=== PATIENT | female | born 1965 ===

== ENCOUNTER 2024-12-21 08:34 | Inpatient (IN) | payer MEDICAID, OTHER ==
[2024-12-21] VITALS (17 sets, daily range): BP systolic 93–142; BP diastolic 36–62; PULSE 51–80; RESP 16–24; TEMP 87.2–88.2; O2SAT 89–100
[~2024-12-21] VITALS: Ht 162.6 cm; Wt 135.0 kg
[2024-12-21] MEDS ORDERED: ISOPROTERENOL HCL IV PRN (08:45)
[2024-12-21] MEDS ORDERED: SODIUM CHLORIDE 0.9% IV PRN (08:45)
[2024-12-21] MEDS: DOPamine 400MG/D5W[STANDARD] 250 ML IV PRN (09:04)
[2024-12-21 09:28] LABS: HEMATOCRIT 33.2 % (36-46); HEMOGLOBIN 10.5 g/dL (12.0-16.0); MEAN CORPUSCULAR HEMOGLOBIN 33.6 pg (26.0-34.0); MEAN CORPUSCULAR HGB CONC 31.5 G/dL (31.0-37.0); MEAN CORPUSCULAR VOLUME 107 fL (80-100); PLATELET COUNT (AUTO) 179 K/uL (150-450); RED BLOOD CELL COUNT(AUTO) 3.11 MIL/uL (4.00-5.20); RED CELL DISTRIBUTION WIDTH 15.4 % (11.5-14.5); WHITE BLOOD COUNT (AUTO) 6.1 K/uL (4.5-11.0)
[2024-12-21 09:36] LABS: PROTHROMBIN TIME 11.2 SEC (9.4-11.6)
[2024-12-21 09:38] LABS: B-TYPE NATRIURETIC PEPTIDE 1760 pg/mL (0-100)
[2024-12-21 09:41] LABS: ANION GAP 17 mmol/L (8-16); BAND NEUTROPHILS % (MANUAL) 0 % (0-5); CALCIUM, TOTAL 7.5 mg/dL (8.8-10.5); CARBON DIOXIDE 13 mmol/L (22-29); CHLORIDE 96 mmol/L (98-107); CREATINE KINASE, TOTAL ONLY 799 U/L (26-192); CREATININE 14.88 mg/dL (0.60-1.30); GLOMERULAR FILTR. RATE CALC 3 mL/min (>60); GLUCOSE,RANDOM 240 mg/dL (70-110); SODIUM SERUM 126 mmol/L (136-145); TROPONIN I-HIGH SENSITIVITY 29 ng/L (<51)
[2024-12-21 09:43] LABS: LYMPHOCYTES % (MANUAL) 13 % (22-44); MONOCYTES % (MANUAL) 8 % (2-9); SEGMENTED NEUTROPHILS % 79 % (40-70); TOTAL CELLS COUNTED 100
[2024-12-21 09:44] LABS: RBC MORPHOLOGY COMMENT ABNORMAL RBC MORPH
[2024-12-21 09:50] LABS: POTASSIUM 7.5 mmol/L (3.5-5.1); UREA NITROGEN, BLOOD 229 mg/dL (7-18)
[2024-12-21] MEDS ORDERED: SODIUM BICARBONATE [ADULT] 8.4% 50 MEQ/50 ML SYRINGE IVP ONE (09:51)
[2024-12-21] MEDS ORDERED: CALCIUM CHLORIDE 100 MG/ML 10 ML SYRINGE IVP ONE (09:52)
[2024-12-21] MEDS ORDERED: DEXTROSE 50%-WATER 25 GM/50 ML SYRINGE IVP ONE (09:52)
[2024-12-21] MEDS ORDERED: INSULIN REGULAR, HUMAN 100 UNITS/ML ONE (09:52)
[2024-12-21] MEDS: SODIUM CHLORIDE 0.9% 1,000 ML IV ONE ×2 (09:54→10:35)
[2024-12-21] MEDS ORDERED: CALCIUM GLUCONATE 0.465 MEQ/ML 10 ML VIAL ONE (09:54)
[2024-12-21] MEDS: SODIUM BICARBONATE [ADULT] 8.4% 50 MEQ/50 ML SYRINGE IVP ONE ×2 (10:05→13:03)
[2024-12-21] MEDS: DEXTROSE 50%-WATER 25 GM/50 ML SYRINGE IVP ONE ×2 (10:05→13:03)
[2024-12-21] MEDS: CALCIUM GLUCONATE 0.465 MEQ/ML 10 ML VIAL IVP ONE ×2 (10:05→13:03)
[2024-12-21] MEDS ORDERED: KETAMINE HCL 50 MG/ML 10 ML VIAL ONE (10:11)
[2024-12-21] MEDS: INSULIN REGULAR, HUMAN 100 UNITS/ML IVP ONE ×2 (10:13→13:04)
[2024-12-21] MEDS ORDERED: KETAMINE HCL 500 MG in DEXTROSE 5%-WATER 490 ML IV PRN (10:15)
[2024-12-21] MEDS: FUROSEMIDE 40 MG/4 ML VIAL IVP ONE (10:19)
[2024-12-21] MEDS: FentaNYL CIT 1000MCG/0.9% NACL 100 ML IV PRN (10:19)
[2024-12-21 10:23] LABS: APPEARANCE,URINE TURBID (CLEAR); GLUCOSE, URINE (UA) TRACE mg/dL (NEGATIVE); LEUKOCYTE ESTERASE ,URINE LARGE (NEGATIVE); NITRATE,URINE POSITIVE (NEGATIVE); OCCULT BLOOD,URINE MODERATE (NEGATIVE); PH,URINE 6.5 (5.0-8.0); PROTEIN,URINE 100-200,SEE CONFIRM mg/dL (NEGATIVE); SPECIFIC GRAVITIY, URINE 1.019 (1.003-1.030)
[2024-12-21 10:26] LABS: BILIRUBIN,URINE LARGE (NEGATIVE)
[2024-12-21 10:27] LABS: COLOR,URINE RED (YELLOW)
[2024-12-21 10:29] LABS: RBC,URINE 26-50 /HPF (0-2); SULFOSALICYLIC ACID,URINE 3+ (Negative)
[2024-12-21 10:30] LABS: BACTERIA,URINE Many /HPF (None Seen); SQUAMOUS EPITHELIAL CELL,UR Few /LPF (None Seen); WBC,URINE >100 /HPF (0-5)
[2024-12-21] MEDS: KETAMINE HCL 500 MG in DEXTROSE 5%-WATER 490 ML IV PRN (10:52)
[2024-12-21] MEDS: CefTRIAXone 1 GM/DEXTROSE 50 ML IV ONE (11:26)
[2024-12-21 12:00] LABS: GLUCOMETER DEV NAME(LOC) ER.7; GLUCOSE,POINT OF CARE 260 MG/DL (70-110)
[2024-12-21] MEDS ORDERED: ROCURONIUM BROMIDE 10 MG/ML 5 ML VIAL ONE (12:00)
[2024-12-21] MEDS ORDERED: VANCOMYCIN 1GM/WATER(PEG/NADA) 200 ML IV PRN (12:00)
[2024-12-21] MEDS ORDERED: ETOMIDATE 2 MG/ML 10 ML VIAL ONE (12:00)
[2024-12-21 12:13] LABS: ABG BASE EXCESS -22.1 mmol/L (-2.0-3.0); ABG CARBOXYHEMOGLOBIN 0.3 % (0.5-1.5); ABG HCO3 8.5 mmol/L (21.0-28.0); ABG METHEMOGLOBIN 0.8 % (0.0-1.5); ABG OXYGEN CONTENT 15.7 mL/dL (15.0-23.0); ABG OXYGEN SATURATION 97.4 % (94.0-98.0); ABG OXYHEMOGLOBIN 96.3 % (94.0-98.0); ABG PCO2 46 mmHg (32.0-45.0); ABG TOTAL HEMOGLOBIN 11.4 G/dL (12.0-16.0); PO2, ARTERIAL BG 98.7 mmHg (83.0-108.0); SOURCE, BLOOD GAS ARTERIAL; TEMPERATURE, FAHRENHEIT, BG 86.4 FAHREN (96.0-98.6)
[2024-12-21 12:15] LABS: ABG PH 6.955 (7.350-7.450); ALLEN TEST, BLOOD GAS POS; O2 DEVICE,BLOOD GAS VENTILATOR (ROOM AIR); SITE, BLOOD GAS LFT RADIAL
[2024-12-21 12:16] LABS: PEEP,BG 5 cm H2O; VT, ABG 300 ml
[2024-12-21] MEDS: NOREPINEPHRINE 8 MG/0.9 % NACL 250 ML IV PRN (13:21)
[2024-12-21] MEDS: PIPERACILLIN/TAZO 3.375 GM/D5W 50 ML IV ONE (13:32)
[2024-12-21] MEDS: SODIUM CHLORIDE 0.9% IV ONE (13:32)
[2024-12-21] MEDS: SODIUM BICARBONATE IV ONE (13:32)
[2024-12-21] MEDS: VANCOMYCIN 1.75GM/WATER(PEG) 350 ML IV ONE (13:56)
[2024-12-21] MEDS ORDERED: POTASSIUM CHLORIDE 10 MEQ in NXSTAGE RFP-402 K0/CA3 5,000 ML IRRIG PRN (14:30)
[2024-12-21] MEDS: HEPARIN SODIUM,PORCINE 5,000 UNITS/ML VIAL SQ SCH (15:11)
[2024-12-21] MEDS ORDERED: SODIUM CHLORIDE 0.9% 500 ML IV ONE (16:32)
[2024-12-21 16:48] LABS: ABG CARBOXYHEMOGLOBIN 0.1 % (0.5-1.5); ABG HCO3 11.6 mmol/L (21.0-28.0); ABG METHEMOGLOBIN 0.7 % (0.0-1.5); ABG OXYGEN CONTENT 15.1 mL/dL (15.0-23.0); ABG OXYGEN SATURATION 92.8 % (94.0-98.0); ABG OXYHEMOGLOBIN 92.1 % (94.0-98.0); ABG TOTAL HEMOGLOBIN 11.6 G/dL (12.0-16.0); PO2, ARTERIAL BG 63.8 mmHg (83.0-108.0); SOURCE, BLOOD GAS ARTERIAL; TEMPERATURE, FAHRENHEIT, BG 87.3 FAHREN (96.0-98.6)
[2024-12-21 16:49] LABS: ABG PH 6.951 (7.350-7.450)
[2024-12-21 16:50] LABS: ABG PCO2 71 mmHg (32.0-45.0); O2 DEVICE,BLOOD GAS VENTILATOR (ROOM AIR); PEEP,BG 5 cm H2O; SITE, BLOOD GAS ALINE; VT, ABG 300 ml
[2024-12-21] MEDS: CALCIUM GLUCONATE 1,000 MG in DEXTROSE 5%-WATER 50 ML IV SCH (17:05)
[2024-12-21] MEDS ORDERED: PIPERACILLIN SODIUM/TAZOBACTAM 2.25 GM in DEXTROSE 5%-WATER 50 ML IV SCH (18:00)
[2024-12-21] MEDS: PIPERACILLIN/TAZO 3.375 GM/D5W 50 ML IV SCH (18:24)
[2024-12-21 19:04] LABS: ABG BASE EXCESS -13.6 mmol/L (-2.0-3.0); ABG CARBOXYHEMOGLOBIN 0.3 % (0.5-1.5); ABG HCO3 14.1 mmol/L (21.0-28.0); ABG METHEMOGLOBIN 0.8 % (0.0-1.5); ABG OXYGEN CONTENT 17.6 mL/dL (15.0-23.0); ABG OXYGEN SATURATION 99.7 % (94.0-98.0); ABG OXYHEMOGLOBIN 98.6 % (94.0-98.0); ABG PCO2 39 mmHg (32.0-45.0); ABG TOTAL HEMOGLOBIN 12.1 G/dL (12.0-16.0); SOURCE, BLOOD GAS ARTERIAL; TEMPERATURE, FAHRENHEIT, BG 87.7 FAHREN (96.0-98.6)
[2024-12-21 19:23] LABS: CALCIUM, TOTAL 7.5 mg/dL (8.8-10.5); CREATININE 11.77 mg/dL (0.60-1.30); MAGNESIUM 2.8 mg/dL (1.80-2.40); POTASSIUM 5.4 mmol/L (3.5-5.1)
[2024-12-21 19:25] LABS: PHOSPHORUS 9.7 mg/dL (2.5-4.9)
[2024-12-21 19:44] LABS: ABG A-A DIFF O2 385.7 mmHg (10-20.0); ABG PH 7.188 (7.350-7.450); O2 DEVICE,BLOOD GAS VENT (ROOM AIR); PO2, ARTERIAL BG 301.7 mmHg (83.0-108.0); SITE, BLOOD GAS ARTERIAL LINE
[2024-12-21 19:45] LABS: PEEP,BG 10 cm H2O; VT, ABG 400 ml
[2024-12-21] MEDS: CHLORHEXIDINE GLUCONATE 2% TOWELETTE [2'S/6'S] TP SCH (21:33)
[2024-12-21] MEDS: NYSTATIN 15 GM POWDER BOTTLE TP SCH (21:33)
[2024-12-21 23:01] LABS: CALCIUM, TOTAL 7.8 mg/dL (8.8-10.5); CREATININE 9.52 mg/dL (0.60-1.30); MAGNESIUM 2.4 mg/dL (1.80-2.40); PHOSPHORUS 7.5 mg/dL (2.5-4.9); POTASSIUM 4.3 mmol/L (3.5-5.1)
[2024-12-22] VITALS (29 sets, daily range): BP systolic 114–142; BP diastolic 35–60; PULSE 47–97; RESP 18–35; TEMP 89.2–96.2; O2SAT 94–100
[2024-12-22 01:34] LABS: CALCIUM, TOTAL 8.1 mg/dL (8.8-10.5); CREATININE 8.97 mg/dL (0.60-1.30); MAGNESIUM 2.4 mg/dL (1.80-2.40); PHOSPHORUS 7.2 mg/dL (2.5-4.9); POTASSIUM 4.3 mmol/L (3.5-5.1)
[2024-12-22 01:52] LABS: ABG BASE EXCESS -10.5 mmol/L (-2.0-3.0); ABG CARBOXYHEMOGLOBIN 0.1 % (0.5-1.5); ABG HCO3 16.5 mmol/L (21.0-28.0); ABG METHEMOGLOBIN 0.1 % (0.0-1.5); ABG OXYGEN SATURATION 96.9 % (94.0-98.0); ABG OXYHEMOGLOBIN 96.7 % (94.0-98.0); ABG PCO2 34 mmHg (32.0-45.0); ABG PH 7.289 (7.350-7.450); ABG TOTAL HEMOGLOBIN 11.7 G/dL (12.0-16.0); PO2, ARTERIAL BG 67.8 mmHg (83.0-108.0); SOURCE, BLOOD GAS ARTERIAL; TEMPERATURE, FAHRENHEIT, BG 89.9 FAHREN (96.0-98.6)
[2024-12-22 01:54] LABS: ABG A-A DIFF O2 218.9 mmHg (10-20.0); O2 DEVICE,BLOOD GAS VENT (ROOM AIR); SITE, BLOOD GAS ARTERIAL LINE; VT, ABG 400 ml
[2024-12-22 01:55] LABS: PEEP,BG 8 cm H2O
[2024-12-22 06:03] LABS: ANION GAP 14 mmol/L (8-16); CALCIUM, TOTAL 8.1 mg/dL (8.8-10.5); CARBON DIOXIDE 19 mmol/L (22-29); CHLORIDE 95 mmol/L (98-107); CREATININE 9.57 mg/dL (0.60-1.30); GLOMERULAR FILTR. RATE CALC 4 mL/min (>60); GLUCOSE,RANDOM 223 mg/dL (70-110); PHOSPHORUS 7.8 mg/dL (2.5-4.9); POTASSIUM 4.7 mmol/L (3.5-5.1); SODIUM SERUM 128 mmol/L (136-145); THYROID STIMULATING HORMONE 1.64 uIU/mL (0.36-3.74)
[2024-12-22 06:21] LABS: BASOPHILS % (AUTO) 0.1 % (0.0-2.0); EOSINOPHILS % (AUTO) 0.1 % (1.0-6.0); HEMOGLOBIN 10.5 g/dL (12.0-16.0); LYMPHOCYTES # (AUTO) 0.3 K/uL (1.0-4.8); LYMPHOCYTES % (AUTO) 6.1 % (22.0-44.0); MEAN CORPUSCULAR HGB CONC 31.8 G/dL (31.0-37.0); MEAN CORPUSCULAR VOLUME 104 fL (80-100); MONOCYTES # (AUTO) 0.3 K/uL (0.1-1.0); MONOCYTES % (AUTO) 5.5 % (2.0-9.0); NEUTROPHILS # (AUTO) 4.7 K/uL (1.8-7.7); PLATELET COUNT (AUTO) 154 K/uL (150-450); RED BLOOD CELL COUNT(AUTO) 3.18 MIL/uL (4.00-5.20); RED CELL DISTRIBUTION WIDTH 14.6 % (11.5-14.5); WHITE BLOOD COUNT (AUTO) 5.3 K/uL (4.5-11.0)
[2024-12-22 06:22] LABS: UREA NITROGEN, BLOOD 137 mg/dL (7-18)
[2024-12-22 06:33] LABS: NEUTROPHILS % (AUTO) 88.2 % (40.0-70.0); RBC MORPHOLOGY COMMENT ABNORMAL RBC MORPH
[2024-12-22 06:36] LABS: VANCOMYCIN,RANDOM 15.4 mcg/mL (25.0-50.0)
[2024-12-22 06:42] LABS: TROPONIN I-HIGH SENSITIVITY 328 ng/L (<51)
[2024-12-22] MEDS: ISOPROTERENOL HCL IV PRN (07:26)
[2024-12-22] MEDS: SODIUM CHLORIDE 0.9% IV PRN (07:26)
[2024-12-22] MEDS: VANCOMYCIN 1GM/WATER(PEG/NADA) 200 ML IV ONE (08:31)
[2024-12-22] MEDS: PANTOPRAZOLE SODIUM 40 MG/VIAL IVP SCH (08:47)
[2024-12-22] MEDS ORDERED: PROPOFOL 1000 MG/ISO-OSM 100 ML ONE (10:28)
[2024-12-22 10:35] LABS: ABG A-A DIFF O2 318.9 mmHg (10-20.0); ABG BASE EXCESS -11.1 mmol/L (-2.0-3.0); ABG CARBOXYHEMOGLOBIN 0.2 % (0.5-1.5); ABG HCO3 15.6 mmol/L (21.0-28.0); ABG METHEMOGLOBIN 0.7 % (0.0-1.5); ABG OXYGEN CONTENT 14.8 mL/dL (15.0-23.0); ABG OXYGEN SATURATION 93.3 % (94.0-98.0); ABG OXYHEMOGLOBIN 92.5 % (94.0-98.0); ABG PCO2 48 mmHg (32.0-45.0); ABG PH 7.177 (7.350-7.450); ABG TOTAL HEMOGLOBIN 11.3 G/dL (12.0-16.0); O2 DEVICE,BLOOD GAS VENTILATOR (ROOM AIR); SITE, BLOOD GAS ARTERIAL LINE; SOURCE, BLOOD GAS ARTERIAL; VT, ABG 400 ml
[2024-12-22 10:36] LABS: PEEP,BG 8 cm H2O
[2024-12-22] MEDS: PROPOFOL 1000 MG/ISO-OSM 100 ML IV PRN (10:38)
[2024-12-22] MEDS: LevETIRAcetam 500 MG in DEXTROSE 5%-WATER 100 ML IV SCH (10:52)
[2024-12-22 15:18] LABS: CALCIUM, TOTAL 7.6 mg/dL (8.8-10.5); CREATININE 7.32 mg/dL (0.60-1.30); MAGNESIUM 2.1 mg/dL (1.80-2.40); POTASSIUM 4.3 mmol/L (3.5-5.1)
[2024-12-22 15:23] LABS: ABG A-A DIFF O2 321.8 mmHg (10-20.0); ABG BASE EXCESS -9.6 mmol/L (-2.0-3.0); ABG CARBOXYHEMOGLOBIN 0.1 % (0.5-1.5); ABG METHEMOGLOBIN 0.8 % (0.0-1.5); ABG OXYGEN SATURATION 95.6 % (94.0-98.0); ABG OXYHEMOGLOBIN 94.7 % (94.0-98.0); ABG PCO2 40 mmHg (32.0-45.0); ABG PH 7.259 (7.350-7.450); ABG TOTAL HEMOGLOBIN 11.2 G/dL (12.0-16.0); O2 DEVICE,BLOOD GAS VENTILATOR (ROOM AIR); PEEP,BG 8 cm H2O; PO2, ARTERIAL BG 67.3 mmHg (83.0-108.0); SITE, BLOOD GAS ARTERIAL LINE; SOURCE, BLOOD GAS ARTERIAL; VT, ABG 450 ml
[2024-12-22 20:45] LABS: GLUCOMETER DEV NAME(LOC) ER.7; GLUCOSE,POINT OF CARE 126 MG/DL (70-110)
[2024-12-22 22:13] LABS: COVID AG,FIA SOURCE NASAL SWAB
[2024-12-22 22:25] LABS: CALCIUM, TOTAL 7.6 mg/dL (8.8-10.5); CREATININE 5.5 mg/dL (0.60-1.30); POTASSIUM 3.9 mmol/L (3.5-5.1)
[2024-12-22 22:29] LABS: MAGNESIUM 1.9 mg/dL (1.80-2.40); PHOSPHORUS 4.3 mg/dL (2.5-4.9)
[2024-12-22 22:38] LABS: SARS-COV2 (COVID) ANTIGEN,FIA Negative (Negative)
[2024-12-22 22:39] LABS: INFLUENZA TYPE A NEGATIVE FOR TYPE A (NEGATIVE); INFLUENZA TYPE B NEGATIVE FOR TYPE B (NEGATIVE)
[2024-12-22] MEDS: HEPARIN SODIUM,PORCINE 1,000 UNITS/ML VIAL IVCATH PRN ×2 (22:40→22:41)
[2024-12-22] MEDS ORDERED: SODIUM CHLORIDE 0.9% 250 ML IV ONE (23:52)
[2024-12-23] VITALS (16 sets, daily range): BP systolic 116–140; BP diastolic 34–42; PULSE 70–100; RESP 20–30; TEMP 95.5–98.3; O2SAT 92–99
[2024-12-23] MEDS ORDERED: SODIUM CHLORIDE 0.9% 2,000 ML ONE (05:48)
[2024-12-23 06:18] LABS: HEMATOCRIT 28.6 % (36-46); HEMOGLOBIN 9.6 g/dL (12.0-16.0); MEAN CORPUSCULAR HEMOGLOBIN 33.8 pg (26.0-34.0); MEAN CORPUSCULAR HGB CONC 33.6 G/dL (31.0-37.0); MEAN CORPUSCULAR VOLUME 101 fL (80-100); PLATELET COUNT (AUTO) 129 K/uL (150-450); RED BLOOD CELL COUNT(AUTO) 2.84 MIL/uL (4.00-5.20); RED CELL DISTRIBUTION WIDTH 14.1 % (11.5-14.5)
[2024-12-23 06:21] LABS: CALCIUM, TOTAL 7.4 mg/dL (8.8-10.5); CREATININE 5.78 mg/dL (0.60-1.30); MAGNESIUM 1.8 mg/dL (1.80-2.40); PHOSPHORUS 4.5 mg/dL (2.5-4.9); POTASSIUM 4.2 mmol/L (3.5-5.1); VANCOMYCIN,RANDOM 17.2 mcg/mL (25.0-50.0)
[2024-12-23] MEDS ORDERED: VASOPRESSIN 40 UNITS in DEXTROSE 5%-WATER 98 ML IV PRN (07:30)
[2024-12-23] MEDS: VANCOMYCIN 1GM/WATER(PEG/NADA) 200 ML IV ONE (08:14)
[2024-12-23 08:20] LABS: BAND NEUTROPHILS % (MANUAL) 22 % (0-5); CORRECTED WHITE BLOOD COUNT 8.3 K/uL (4.5-11.0); LYMPHOCYTES % (MANUAL) 14 % (22-44); METAMYELOCYTES % 2 % (0-0); MONOCYTES % (MANUAL) 3 % (2-9); SEGMENTED NEUTROPHILS % 59 % (40-70); TOTAL CELLS COUNTED 100; WHITE BLOOD COUNT (AUTO) 8.3 K/uL (4.5-11.0)
[2024-12-23 08:21] LABS: RBC MORPHOLOGY COMMENT ABNORMAL RBC MORPH
[2024-12-23 10:20] LABS: ABG BASE EXCESS -4.4 mmol/L (-2.0-3.0); ABG CARBOXYHEMOGLOBIN 0.3 % (0.5-1.5); ABG HCO3 21.2 mmol/L (21.0-28.0); ABG OXYGEN CONTENT 13.8 mL/dL (15.0-23.0); ABG OXYGEN SATURATION 93.3 % (94.0-98.0); ABG PCO2 34 mmHg (32.0-45.0); ABG PH 7.402 (7.350-7.450); ABG TOTAL HEMOGLOBIN 10.5 G/dL (12.0-16.0); PO2, ARTERIAL BG 61.2 mmHg (83.0-108.0); SOURCE, BLOOD GAS ARTERIAL; TEMPERATURE, FAHRENHEIT, BG 97.6 FAHREN (96.0-98.6)
[2024-12-23 10:21] LABS: SITE, BLOOD GAS ARTERIAL LINE
[2024-12-23 10:22] LABS: ABG A-A DIFF O2 258.4 mmHg (10-20.0); O2 DEVICE,BLOOD GAS VENTILATOR (ROOM AIR); VENT MODE, BG A/C (ROOM AIR); VT, ABG 450 ml
[2024-12-23 10:23] LABS: PEEP,BG 8 cm H2O; SPONTANEOUS VT, BG 458 ml
[2024-12-23 10:40] LABS: CALCIUM, TOTAL 7.5 mg/dL (8.8-10.5); CREATININE 4.7 mg/dL (0.60-1.30); MAGNESIUM 1.8 mg/dL (1.80-2.40); PHOSPHORUS 3.7 mg/dL (2.5-4.9); POTASSIUM 4.3 mmol/L (3.5-5.1)
[2024-12-23] MEDS: POTASSIUM CHLORIDE 15 MEQ in NXSTAGE RFP-402 K0/CA3 5,000 ML IRRIG PRN (10:55)
[2024-12-23] MEDS ORDERED: DEXTROSE 50%-WATER 25 GM/50 ML SYRINGE IVP PRN (12:15)
[2024-12-23 13:41] LABS: GLUCOMETER DEV NAME(LOC) ICU.S6; GLUCOSE,POINT OF CARE 98 MG/DL (70-110)
[2024-12-23] MEDS ORDERED: DOPamine 400MG/D5W[STANDARD] 250 ML IV ONE (14:14)
[2024-12-23] MEDS: DOPamine 400MG/D5W[STANDARD] 250 ML IV PRN (14:37)
[2024-12-23 15:11] LABS: CREATININE 4.11 mg/dL (0.60-1.30); MAGNESIUM 1.7 mg/dL (1.80-2.40); PHOSPHORUS 3.3 mg/dL (2.5-4.9)
[2024-12-23 18:16] LABS: GLUCOMETER DEV NAME(LOC) ICU.S6; GLUCOSE,POINT OF CARE 84 MG/DL (70-110)
[2024-12-23 18:20] LABS: CALCIUM, TOTAL 7.9 mg/dL (8.8-10.5); CREATININE 3.61 mg/dL (0.60-1.30); MAGNESIUM 1.7 mg/dL (1.80-2.40); PHOSPHORUS 3.1 mg/dL (2.5-4.9); POTASSIUM 4.2 mmol/L (3.5-5.1)
[2024-12-23] MEDS: MAGNESIUM SULFATE 2 GM/WATER 50 ML IV ONE (18:22)
[2024-12-23] MEDS: FentaNYL CIT 1000MCG/0.9% NACL 100 ML IV PRN (18:51)
[2024-12-23] MEDS: NOREPINEPHRINE 8 MG/0.9 % NACL 250 ML IV PRN (21:19)
[2024-12-23 22:30] LABS: CALCIUM, TOTAL 8.2 mg/dL (8.8-10.5); CREATININE 3.23 mg/dL (0.60-1.30); POTASSIUM 4.1 mmol/L (3.5-5.1)
[2024-12-24] VITALS (13 sets, daily range): BP systolic 106–137; BP diastolic 38–47; PULSE 79–103; RESP 30–31; TEMP 96.7–97.9; O2SAT 95–99
[2024-12-24] MEDS ORDERED: SODIUM CHLORIDE 0.9% 250 ML IV ONE (01:26)
[2024-12-24 01:51] LABS: GLUCOMETER DEV NAME(LOC) ICU.S6; GLUCOSE,POINT OF CARE 99 MG/DL (70-110)
[2024-12-24 02:31] LABS: CALCIUM, TOTAL 8.1 mg/dL (8.8-10.5); CREATININE 2.77 mg/dL (0.60-1.30); PHOSPHORUS 2.9 mg/dL (2.5-4.9)
[2024-12-24 06:53] LABS: EOSINOPHILS % (AUTO) 1.5 % (1.0-6.0); HEMATOCRIT 28.1 % (36-46); HEMOGLOBIN 9.5 g/dL (12.0-16.0); LYMPHOCYTES # (AUTO) 0.9 K/uL (1.0-4.8); LYMPHOCYTES % (AUTO) 8.7 % (22.0-44.0); MEAN CORPUSCULAR HEMOGLOBIN 33.7 pg (26.0-34.0); MEAN CORPUSCULAR HGB CONC 33.8 G/dL (31.0-37.0); MEAN CORPUSCULAR VOLUME 100 fL (80-100); MONOCYTES # (AUTO) 0.6 K/uL (0.1-1.0); MONOCYTES % (AUTO) 5.9 % (2.0-9.0); NEUTROPHILS # (AUTO) 9.2 K/uL (1.8-7.7); NEUTROPHILS % (AUTO) 83.9 % (40.0-70.0); PLATELET COUNT (AUTO) 107 K/uL (150-450); RED BLOOD CELL COUNT(AUTO) 2.81 MIL/uL (4.00-5.20); WHITE BLOOD COUNT (AUTO) 10.9 K/uL (4.5-11.0)
[2024-12-24 07:08] LABS: ANION GAP 10 mmol/L (8-16); CALCIUM, TOTAL 8.5 mg/dL (8.8-10.5); CARBON DIOXIDE 25 mmol/L (22-29); CHLORIDE 97 mmol/L (98-107); CREATININE 2.41 mg/dL (0.60-1.30); GLOMERULAR FILTR. RATE CALC 21 mL/min (>60); GLUCOSE,RANDOM 91 mg/dL (70-110); PHOSPHORUS 2.6 mg/dL (2.5-4.9); POTASSIUM 3.9 mmol/L (3.5-5.1); SODIUM SERUM 132 mmol/L (136-145); UREA NITROGEN, BLOOD 34 mg/dL (7-18)
[2024-12-24 07:16] LABS: TROPONIN I-HIGH SENSITIVITY 826 ng/L (<51)
[2024-12-24] MEDS: VANCOMYCIN 1GM/WATER(PEG/NADA) 200 ML IV ONE (08:18)
[2024-12-24] MEDS: PHENYLEPHRINE 200 MG/D5%-WATER 250 ML IV PRN (09:43)
[2024-12-24 11:24] LABS: ALBUMIN 2.2 g/dL (3.4-5.0)
[2024-12-24] MEDS: *CLINICAL-MEROPENEM DOSING CLINICAL ONE (11:58)
[2024-12-24 12:16] LABS: GLUCOMETER DEV NAME(LOC) ICU.S6; GLUCOSE,POINT OF CARE 101 MG/DL (70-110)
[2024-12-24] MEDS: MEROPENEM 1 GM in SODIUM CHLORIDE 0.9% 50 ML IV SCH (12:24)
[2024-12-24] MEDS: ALBUMIN HUMAN 25%-25GM/100ML 100 ML IV SCH (12:25)
[2024-12-24 15:51] LABS: ABG BASE EXCESS -1.5 mmol/L (-2.0-3.0); ABG CARBOXYHEMOGLOBIN 0.3 % (0.5-1.5); ABG HCO3 23.5 mmol/L (21.0-28.0); ABG METHEMOGLOBIN 0.3 % (0.0-1.5); ABG OXYGEN CONTENT 12.3 mL/dL (15.0-23.0); ABG OXYGEN SATURATION 94.8 % (94.0-98.0); ABG OXYHEMOGLOBIN 94.2 % (94.0-98.0); ABG PCO2 34 mmHg (32.0-45.0); ABG PH 7.445 (7.350-7.450); ABG TOTAL HEMOGLOBIN 9.2 G/dL (12.0-16.0); PO2, ARTERIAL BG 63.3 mmHg (83.0-108.0); SOURCE, BLOOD GAS ARTERIAL; TEMPERATURE, FAHRENHEIT, BG 97.9 FAHREN (96.0-98.6)
[2024-12-24 15:52] LABS: ABG A-A DIFF O2 111.4 mmHg (10-20.0); O2 DEVICE,BLOOD GAS VENTILATOR (ROOM AIR); SITE, BLOOD GAS ARTERIAL LINE; VT, ABG 450 ml
[2024-12-24 15:53] LABS: PEEP,BG 5 cm H2O; SPONTANEOUS VT, BG 448 ml
[2024-12-24 16:30] LABS: GLUCOMETER DEV NAME(LOC) ICU.S6; GLUCOSE,POINT OF CARE 94 MG/DL (70-110)
[2024-12-24 17:21] LABS: CALCIUM, TOTAL 8.5 mg/dL (8.8-10.5); CREATININE 1.89 mg/dL (0.60-1.30); MAGNESIUM 1.8 mg/dL (1.80-2.40); PHOSPHORUS 2.5 mg/dL (2.5-4.9); POTASSIUM 3.8 mmol/L (3.5-5.1)
[2024-12-25] VITALS (15 sets, daily range): BP systolic 110–134; BP diastolic 43–57; PULSE 78–91; RESP 30; TEMP 97.2–98.1; O2SAT 98–100
[2024-12-25 00:31] LABS: GLUCOMETER DEV NAME(LOC) ICU.S6; GLUCOSE,POINT OF CARE 97 MG/DL (70-110)
[2024-12-25] MEDS ORDERED: SODIUM CHLORIDE 0.9% 250 ML IV ONE (01:21)
[2024-12-25 05:57] LABS: BASOPHILS % (AUTO) 0.1 % (0.0-2.0); HEMATOCRIT 23.5 % (36-46); HEMOGLOBIN 7.9 g/dL (12.0-16.0); LYMPHOCYTES # (AUTO) 0.8 K/uL (1.0-4.8); LYMPHOCYTES % (AUTO) 8.4 % (22.0-44.0); MEAN CORPUSCULAR HGB CONC 33.9 G/dL (31.0-37.0); MEAN CORPUSCULAR VOLUME 100 fL (80-100); MONOCYTES # (AUTO) 0.4 K/uL (0.1-1.0); MONOCYTES % (AUTO) 4.8 % (2.0-9.0); NEUTROPHILS % (AUTO) 85.7 % (40.0-70.0); PLATELET COUNT (AUTO) 89 K/uL (150-450); RED BLOOD CELL COUNT(AUTO) 2.34 MIL/uL (4.00-5.20); RED CELL DISTRIBUTION WIDTH 13.8 % (11.5-14.5); WHITE BLOOD COUNT (AUTO) 9.3 K/uL (4.5-11.0)
[2024-12-25 06:01] LABS: CALCIUM, TOTAL 8.6 mg/dL (8.8-10.5); CREATININE 1.52 mg/dL (0.60-1.30); MAGNESIUM 1.9 mg/dL (1.80-2.40); PHOSPHORUS 2.1 mg/dL (2.5-4.9); POTASSIUM 3.5 mmol/L (3.5-5.1)
[2024-12-25 06:39] LABS: VANCOMYCIN,RANDOM 13.3 mcg/mL (25.0-50.0)
[2024-12-25 06:51] LABS: GLUCOMETER DEV NAME(LOC) ICUN.5; GLUCOSE,POINT OF CARE 82 MG/DL (70-110)
[2024-12-25] MEDS ORDERED: POTASSIUM CHLORIDE 20 MEQ in NXSTAGE RFP-402 K0/CA3 5,000 ML IRRIG PRN (07:15)
[2024-12-25] MEDS: MAGNESIUM SULFATE 1 GM in DEXTROSE 5%-WATER 50 ML IV ONE (09:13)
[2024-12-25] MEDS: DEXTROSE 5% IV ONE (11:36)
[2024-12-25] MEDS: WATER IV ONE (11:36)
[2024-12-25] MEDS: VANCOMYCIN 1GM/WATER(PEG/NADA) 200 ML IV ONE (11:36)
[2024-12-25] MEDS: POTASSIUM PHOS M BASIC D BASIC IV ONE (11:36)
[2024-12-25] MEDS ORDERED: HEPARIN SODIUM,PORCINE 1,000 UNITS/ML VIAL ONE (16:42)
[2024-12-25 17:56] LABS: GLUCOMETER DEV NAME(LOC) ICUN.5; GLUCOSE,POINT OF CARE 104 MG/DL (70-110)
[2024-12-25 18:00] LABS: GLUCOMETER DEV NAME(LOC) ICUN.5; GLUCOSE,POINT OF CARE 94 MG/DL (70-110)
[2024-12-26] VITALS (26 sets, daily range): BP systolic 99–147; BP diastolic 45–65; PULSE 63–85; RESP 30–34; TEMP 97.3–98.1; O2SAT 97–99
[2024-12-26] MEDS ORDERED: SODIUM CHLORIDE 0.9% 250 ML IV ONE ×2 (04:37→08:09)
[2024-12-26 05:49] LABS: BASOPHILS % (AUTO) 0.1 % (0.0-2.0); EOSINOPHILS % (AUTO) 3.7 % (1.0-6.0); HEMATOCRIT 22.9 % (36-46); HEMOGLOBIN 7.6 g/dL (12.0-16.0); LYMPHOCYTES # (AUTO) 0.9 K/uL (1.0-4.8); LYMPHOCYTES % (AUTO) 11.4 % (22.0-44.0); MEAN CORPUSCULAR HEMOGLOBIN 33.2 pg (26.0-34.0); MEAN CORPUSCULAR VOLUME 101 fL (80-100); MONOCYTES # (AUTO) 0.4 K/uL (0.1-1.0); MONOCYTES % (AUTO) 5.5 % (2.0-9.0); NEUTROPHILS # (AUTO) 6.2 K/uL (1.8-7.7); NEUTROPHILS % (AUTO) 79.3 % (40.0-70.0); PLATELET COUNT (AUTO) 75 K/uL (150-450); RED BLOOD CELL COUNT(AUTO) 2.28 MIL/uL (4.00-5.20); RED CELL DISTRIBUTION WIDTH 14.2 % (11.5-14.5); WHITE BLOOD COUNT (AUTO) 7.8 K/uL (4.5-11.0)
[2024-12-26 06:03] LABS: CREATININE 1.86 mg/dL (0.60-1.30); PHOSPHORUS 1.7 mg/dL (2.5-4.9); POTASSIUM 3.4 mmol/L (3.5-5.1); VANCOMYCIN,RANDOM 22.9 mcg/mL (25.0-50.0)
[2024-12-26 06:06] LABS: GLUCOMETER DEV NAME(LOC) ICU.S6; GLUCOSE,POINT OF CARE 87 MG/DL (70-110)
[2024-12-26 06:15] LABS: GLUCOMETER DEV NAME(LOC) ICUN.5; GLUCOSE,POINT OF CARE 84 MG/DL (70-110)
[2024-12-26 06:30] LABS: RBC MORPHOLOGY COMMENT ABNORMAL RBC MORPH
[2024-12-26] MEDS: POTASSIUM PHOS,M-BASIC-D-BASIC 15 MEQ in DEXTROSE 5%-WATER 50 ML IV ONE (09:52)
[2024-12-26] MEDS: HEPARIN SODIUM,PORCINE 1,000 UNITS/ML VIAL IVCATH PRN ×2 (15:22)
[2024-12-26 16:00] LABS: GLUCOMETER DEV NAME(LOC) ICU.S6; GLUCOSE,POINT OF CARE 101 MG/DL (70-110)
[2024-12-26] MEDS ORDERED: HEPARIN SODIUM,PORCINE 1,000 UNITS/ML VIAL ONE (16:44)
[2024-12-26 17:57] LABS: CALCIUM, TOTAL 9.1 mg/dL (8.8-10.5); CREATININE 1.22 mg/dL (0.60-1.30); MAGNESIUM 1.8 mg/dL (1.80-2.40); POTASSIUM 3.4 mmol/L (3.5-5.1)
[2024-12-26 18:07] LABS: PHOSPHORUS 1.4 mg/dL (2.5-4.9)
[2024-12-26] MEDS: SODIUM PHOS,M-BASIC-D-BASIC 10 MEQ in DEXTROSE 5%-WATER 50 ML IV ONE (19:22)
[2024-12-26] MEDS: DOCUSATE SODIUM 100 MG/10 ML LIQUID UDCUP GT SCH (20:38)
[2024-12-26 23:56] LABS: GLUCOMETER DEV NAME(LOC) ICUN.5; GLUCOSE,POINT OF CARE 90 MG/DL (70-110)
[2024-12-27] VITALS (27 sets, daily range): BP systolic 89–151; BP diastolic 36–57; PULSE 58–79; RESP 20–30; TEMP 97.9–99.2; O2SAT 96–100
[2024-12-27 06:21] LABS: BASOPHILS % (AUTO) 0.3 % (0.0-2.0); EOSINOPHILS % (AUTO) 4.5 % (1.0-6.0); HEMATOCRIT 22.9 % (36-46); HEMOGLOBIN 7.7 g/dL (12.0-16.0); LYMPHOCYTES % (AUTO) 14.7 % (22.0-44.0); MEAN CORPUSCULAR HEMOGLOBIN 33.4 pg (26.0-34.0); MEAN CORPUSCULAR HGB CONC 33.6 G/dL (31.0-37.0); MEAN CORPUSCULAR VOLUME 100 fL (80-100); MONOCYTES # (AUTO) 0.5 K/uL (0.1-1.0); NEUTROPHILS # (AUTO) 4.8 K/uL (1.8-7.7); NEUTROPHILS % (AUTO) 73.5 % (40.0-70.0); PLATELET COUNT (AUTO) 76 K/uL (150-450); RED CELL DISTRIBUTION WIDTH 13.5 % (11.5-14.5); WHITE BLOOD COUNT (AUTO) 6.5 K/uL (4.5-11.0)
[2024-12-27 07:06] LABS: CALCIUM, TOTAL 8.5 mg/dL (8.8-10.5); CREATININE 1.6 mg/dL (0.60-1.30); MAGNESIUM 1.8 mg/dL (1.80-2.40); PHOSPHORUS 1.5 mg/dL (2.5-4.9); POTASSIUM 3.1 mmol/L (3.5-5.1)
[2024-12-27] MEDS ORDERED: VANCOMYCIN 1.25 GM/WATER(PEG) 250 ML IV SCH (08:00)
[2024-12-27] MEDS ORDERED: SODIUM CHLORIDE 0.9% 2,000 ML ONE (08:15)
[2024-12-27 08:41] LABS: GLUCOMETER DEV NAME(LOC) ICU.S6; GLUCOSE,POINT OF CARE 96 MG/DL (70-110)
[2024-12-27] MEDS: VANCOMYCIN HCL 1.25 GM in DEXTROSE 5%-WATER 250 ML IV SCH (09:17)
[2024-12-27] MEDS: POTASSIUM PHOS,M-BASIC-D-BASIC 20 MEQ in DEXTROSE 5%-WATER 100 ML IV ONE (13:22)
[2024-12-27] MEDS ORDERED: SODIUM CHLORIDE 0.9% 250 ML IV ONE (16:11)
[2024-12-27] MEDS ORDERED: HEPARIN SODIUM,PORCINE 1,000 UNITS/ML VIAL ONE (16:48)
[2024-12-27 18:01] LABS: GLUCOMETER DEV NAME(LOC) ICUN.5; GLUCOSE,POINT OF CARE 92 MG/DL (70-110)
[2024-12-27 18:46] LABS: GLUCOMETER DEV NAME(LOC) ICU.S6; GLUCOSE,POINT OF CARE 95 MG/DL (70-110)
[2024-12-27 19:22] LABS: CALCIUM, TOTAL 9.1 mg/dL (8.8-10.5); CREATININE 1.28 mg/dL (0.60-1.30); MAGNESIUM 1.7 mg/dL (1.80-2.40); PHOSPHORUS 1.9 mg/dL (2.5-4.9); POTASSIUM 3.6 mmol/L (3.5-5.1)
[2024-12-27] MEDS: BUMETANIDE 0.25 MG/ML 4 ML VIAL IVP SCH (21:07)
[2024-12-28] VITALS (18 sets, daily range): BP systolic 111–145; BP diastolic 39–64; PULSE 59–104; RESP 19–30; TEMP 97.9–99.5; O2SAT 92–100
[2024-12-28] MEDS ORDERED: SODIUM CHLORIDE 0.9% 500 ML IV ONE ×2 (01:01→14:06)
[2024-12-28 05:36] LABS: GLUCOMETER DEV NAME(LOC) ICUN.5; GLUCOSE,POINT OF CARE 105 MG/DL (70-110)
[2024-12-28 05:58] LABS: CALCIUM, TOTAL 9.1 mg/dL (8.8-10.5); CREATININE 1.53 mg/dL (0.60-1.30); POTASSIUM 3.4 mmol/L (3.5-5.1)
[2024-12-28 06:18] LABS: MAGNESIUM 1.7 mg/dL (1.80-2.40); PHOSPHORUS 1.8 mg/dL (2.5-4.9)
[2024-12-28 06:50] LABS: BASOPHILS % (AUTO) 1.8 % (0.0-2.0); EOSINOPHILS % (AUTO) 6.5 % (1.0-6.0); HEMATOCRIT 23.5 % (36-46); HEMOGLOBIN 7.7 g/dL (12.0-16.0); LYMPHOCYTES # (AUTO) 1.4 K/uL (1.0-4.8); LYMPHOCYTES % (AUTO) 23.8 % (22.0-44.0); MEAN CORPUSCULAR HEMOGLOBIN 32.8 pg (26.0-34.0); MEAN CORPUSCULAR HGB CONC 32.8 G/dL (31.0-37.0); MEAN CORPUSCULAR VOLUME 100 fL (80-100); MONOCYTES # (AUTO) 0.3 K/uL (0.1-1.0); MONOCYTES % (AUTO) 5.5 % (2.0-9.0); NEUTROPHILS # (AUTO) 3.6 K/uL (1.8-7.7); NEUTROPHILS % (AUTO) 62.4 % (40.0-70.0); PLATELET COUNT (AUTO) 71 K/uL (150-450); RED BLOOD CELL COUNT(AUTO) 2.35 MIL/uL (4.00-5.20); RED CELL DISTRIBUTION WIDTH 13.6 % (11.5-14.5); WHITE BLOOD COUNT (AUTO) 5.8 K/uL (4.5-11.0)
[2024-12-28 12:06] LABS: GLUCOMETER DEV NAME(LOC) ICUN.5; GLUCOSE,POINT OF CARE 82 MG/DL (70-110)
[2024-12-28] MEDS: SODIUM PHOS,M-BASIC-D-BASIC 20 MEQ in DEXTROSE 5%-WATER 100 ML IV ONE (13:22)
[2024-12-28 17:20] LABS: GLUCOMETER DEV NAME(LOC) ICUN.5; GLUCOSE,POINT OF CARE 136 MG/DL (70-110)
[2024-12-28 19:26] LABS: GLUCOMETER DEV NAME(LOC) ICU.S6; GLUCOSE,POINT OF CARE 106 MG/DL (70-110)
[2024-12-28 23:14] LABS: CREATININE 1.91 mg/dL (0.60-1.30); POTASSIUM 3.2 mmol/L (3.5-5.1)
[2024-12-28 23:15] LABS: CALCIUM, TOTAL 8.9 mg/dL (8.8-10.5)
[2024-12-28 23:18] LABS: MAGNESIUM 1.7 mg/dL (1.80-2.40); PHOSPHORUS 2.9 mg/dL (2.5-4.9)
[2024-12-29] VITALS (22 sets, daily range): BP systolic 115–139; BP diastolic 44–53; PULSE 64–93; RESP 30; TEMP 97.3–99.6; O2SAT 94–100
[2024-12-29] MEDS: POTASSIUM CHL 10 MEQ/WATER 50 ML IV SCH (00:01)
[2024-12-29 05:31] LABS: GLUCOMETER DEV NAME(LOC) ICUN.5; GLUCOSE,POINT OF CARE 93 MG/DL (70-110)
[2024-12-29 06:03] LABS: CALCIUM, TOTAL 8.9 mg/dL (8.8-10.5); CREATININE 1.97 mg/dL (0.60-1.30); MAGNESIUM 1.8 mg/dL (1.80-2.40); PHOSPHORUS 3.1 mg/dL (2.5-4.9); POTASSIUM 3.5 mmol/L (3.5-5.1)
[2024-12-29 06:05] LABS: HEMATOCRIT 24.1 % (36-46); HEMOGLOBIN 8.1 g/dL (12.0-16.0); MEAN CORPUSCULAR HEMOGLOBIN 33.6 pg (26.0-34.0); MEAN CORPUSCULAR HGB CONC 33.5 G/dL (31.0-37.0); MEAN CORPUSCULAR VOLUME 100 fL (80-100); PLATELET COUNT (AUTO) 76 K/uL (150-450); RED CELL DISTRIBUTION WIDTH 13.8 % (11.5-14.5); WHITE BLOOD COUNT (AUTO) 5.3 K/uL (4.5-11.0)
[2024-12-29 06:34] LABS: SEGMENTED NEUTROPHILS % 61 % (40-70); TOTAL CELLS COUNTED 100
[2024-12-29 06:35] LABS: BAND NEUTROPHILS % (MANUAL) 1 % (0-5); LYMPHOCYTES % (MANUAL) 31 % (22-44); MONOCYTES % (MANUAL) 7 % (2-9); RBC MORPHOLOGY COMMENT ABNORMAL R
[2024-12-29 07:30] LABS: GLUCOMETER DEV NAME(LOC) ICU.S6; GLUCOSE,POINT OF CARE 86 MG/DL (70-110)
[2024-12-29] MEDS ORDERED: VANCOMYCIN 1GM/WATER(PEG/NADA) 200 ML IV PRN (09:15)
[2024-12-29] MEDS: ALBUMIN HUMAN 25%-25GM/100ML 100 ML IV SCH (14:35)
[2024-12-29] MEDS ORDERED: HEPARIN SODIUM,PORCINE 1,000 UNITS/ML VIAL ONE (16:44)
[2024-12-29 17:51] LABS: GLUCOMETER DEV NAME(LOC) ICU.S6; GLUCOSE,POINT OF CARE 108 MG/DL (70-110)
[2024-12-29] MEDS: ACETAMINOPHEN 325 MG TABLET PO PRN (21:47)
[2024-12-30] VITALS (21 sets, daily range): BP systolic 113–183; BP diastolic 46–74; PULSE 77–111; RESP 10–34; TEMP 99.6–100.2; O2SAT 94–99
[2024-12-30 00:16] LABS: GLUCOMETER DEV NAME(LOC) ICUN.5; GLUCOSE,POINT OF CARE 112 MG/DL (70-110)
[2024-12-30 00:40] LABS: GLUCOMETER DEV NAME(LOC) ICUN.5; GLUCOSE,POINT OF CARE 111 MG/DL (70-110)
[2024-12-30 06:10] LABS: BASOPHILS % (AUTO) 0.6 % (0.0-2.0); EOSINOPHILS % (AUTO) 7.3 % (1.0-6.0); HEMATOCRIT 23.6 % (36-46); HEMOGLOBIN 7.6 g/dL (12.0-16.0); LYMPHOCYTES # (AUTO) 1.4 K/uL (1.0-4.8); LYMPHOCYTES % (AUTO) 25.9 % (22.0-44.0); MEAN CORPUSCULAR HEMOGLOBIN 32.3 pg (26.0-34.0); MEAN CORPUSCULAR HGB CONC 32.2 G/dL (31.0-37.0); MEAN CORPUSCULAR VOLUME 100 fL (80-100); MONOCYTES # (AUTO) 0.5 K/uL (0.1-1.0); MONOCYTES % (AUTO) 9.4 % (2.0-9.0); NEUTROPHILS # (AUTO) 3.1 K/uL (1.8-7.7); NEUTROPHILS % (AUTO) 56.8 % (40.0-70.0); PLATELET COUNT (AUTO) 104 K/uL (150-450); RED BLOOD CELL COUNT(AUTO) 2.36 MIL/uL (4.00-5.20); RED CELL DISTRIBUTION WIDTH 13.8 % (11.5-14.5); WHITE BLOOD COUNT (AUTO) 5.4 K/uL (4.5-11.0)
[2024-12-30 06:34] LABS: CALCIUM, TOTAL 8.9 mg/dL (8.8-10.5); CREATININE 1.78 mg/dL (0.60-1.30); MAGNESIUM 1.8 mg/dL (1.80-2.40); PHOSPHORUS 2.7 mg/dL (2.5-4.9); POTASSIUM 3.1 mmol/L (3.5-5.1); VANCOMYCIN,RANDOM 25.8 mcg/mL (25.0-50.0)
[2024-12-30] MEDS: POTASSIUM CHL 10 MEQ/WATER 50 ML IV SCH (07:58)
[2024-12-30] MEDS: BUMETANIDE 0.25 MG/ML 4 ML VIAL IVP SCH (08:26)
[2024-12-30 13:05] LABS: GLUCOMETER DEV NAME(LOC) ICU.S6; GLUCOSE,POINT OF CARE 102 MG/DL (70-110)
[2024-12-30 13:06] LABS: GLUCOMETER DEV NAME(LOC) ICUN.5; GLUCOSE,POINT OF CARE 124 MG/DL (70-110)
[2024-12-30 15:10] LABS: ABG BASE EXCESS -0.5 mmol/L (-2.0-3.0); ABG CARBOXYHEMOGLOBIN 0.3 % (0.5-1.5); ABG METHEMOGLOBIN 0.2 % (0.0-1.5); ABG OXYGEN CONTENT 12.2 mL/dL (15.0-23.0); ABG OXYHEMOGLOBIN 96.5 % (94.0-98.0); ABG PCO2 44 mmHg (32.0-45.0); ABG PH 7.369 (7.350-7.450); ABG TOTAL HEMOGLOBIN 8.9 G/dL (12.0-16.0); PO2, ARTERIAL BG 96.2 mmHg (83.0-108.0); SOURCE, BLOOD GAS ARTERIAL; TEMPERATURE, FAHRENHEIT, BG 100.1 FAHREN (96.0-98.6)
[2024-12-30 15:11] LABS: ABG A-A DIFF O2 65.5 mmHg (10-20.0); O2 DEVICE,BLOOD GAS VENTILATOR (ROOM AIR); PEEP,BG 5 cm H2O; PRESSURE SUPPORT, BG 10 cm H2O; SITE, BLOOD GAS ARTERIAL LINE; SPONTANEOUS VT, BG 515 ml; VENT MODE, BG Press. Support Vent. (ROOM AIR)
[2024-12-30] MEDS ORDERED: HEPARIN SODIUM,PORCINE 1,000 UNITS/ML VIAL IVP ONE (17:56)
[2024-12-30] MEDS: MEROPENEM 500 MG in SODIUM CHLORIDE 0.9% 50 ML IV SCH (17:57)
[2024-12-30 19:11] LABS: GLUCOMETER DEV NAME(LOC) ICU.S6; GLUCOSE,POINT OF CARE 87 MG/DL (70-110)
[2024-12-31] VITALS (13 sets, daily range): BP systolic 125–154; BP diastolic 46–62; PULSE 62–100; RESP 13–32; TEMP 98.5–99.4; O2SAT 96–100
[2024-12-31 00:36] LABS: GLUCOMETER DEV NAME(LOC) ICU.S6; GLUCOSE,POINT OF CARE 118 MG/DL (70-110)
[2024-12-31 06:14] LABS: BASOPHILS % (AUTO) 0.7 % (0.0-2.0); EOSINOPHILS % (AUTO) 5.3 % (1.0-6.0); HEMATOCRIT 23.8 % (36-46); HEMOGLOBIN 7.8 g/dL (12.0-16.0); LYMPHOCYTES # (AUTO) 1.5 K/uL (1.0-4.8); LYMPHOCYTES % (AUTO) 25.1 % (22.0-44.0); MEAN CORPUSCULAR HEMOGLOBIN 33.5 pg (26.0-34.0); MEAN CORPUSCULAR HGB CONC 32.9 G/dL (31.0-37.0); MEAN CORPUSCULAR VOLUME 102 fL (80-100); MONOCYTES # (AUTO) 0.6 K/uL (0.1-1.0); MONOCYTES % (AUTO) 10.6 % (2.0-9.0); NEUTROPHILS # (AUTO) 3.5 K/uL (1.8-7.7); NEUTROPHILS % (AUTO) 58.3 % (40.0-70.0); PLATELET COUNT (AUTO) 142 K/uL (150-450); RED BLOOD CELL COUNT(AUTO) 2.34 MIL/uL (4.00-5.20); RED CELL DISTRIBUTION WIDTH 13.8 % (11.5-14.5)
[2024-12-31 06:16] LABS: CALCIUM, TOTAL 9.6 mg/dL (8.8-10.5); CREATININE 1.69 mg/dL (0.60-1.30)
[2024-12-31 06:22] LABS: POTASSIUM 2.8 mmol/L (3.5-5.1)
[2024-12-31 06:30] LABS: GLUCOMETER DEV NAME(LOC) ICUN.5; GLUCOSE,POINT OF CARE 112 MG/DL (70-110)
[2024-12-31] MEDS ORDERED: SODIUM CHLORIDE 0.9% 250 ML IV ONE (08:01)
[2024-12-31 08:06] LABS: RBC MORPHOLOGY COMMENT ABNORMAL RBC MORPH
[2024-12-31] MEDS: POTASSIUM CHLORIDE 10% 40 MEQ/30 ML LIQUID UDCUP GT ONE (08:38)
[2024-12-31] MEDS: POTASSIUM CHL 10 MEQ/WATER 50 ML IV SCH ×2 (08:39→14:20)
[2024-12-31] MEDS: DEXMEDETOMIDINE 400 MCG/NS 100 ML IV PRN (10:36)
[2024-12-31 11:35] LABS: ABG BASE EXCESS 1.6 mmol/L (-2.0-3.0); ABG CARBOXYHEMOGLOBIN 0.2 % (0.5-1.5); ABG HCO3 25.8 mmol/L (21.0-28.0); ABG METHEMOGLOBIN 1.1 % (0.0-1.5); ABG OXYGEN CONTENT 11.7 mL/dL (15.0-23.0); ABG OXYGEN SATURATION 97.6 % (94.0-98.0); ABG OXYHEMOGLOBIN 96.3 % (94.0-98.0); ABG PCO2 44 mmHg (32.0-45.0); ABG PH 7.395 (7.350-7.450); ABG TOTAL HEMOGLOBIN 8.5 G/dL (12.0-16.0); PO2, ARTERIAL BG 97.3 mmHg (83.0-108.0); SOURCE, BLOOD GAS ARTERIAL; TEMPERATURE, FAHRENHEIT, BG 98.6 FAHREN (96.0-98.6)
[2024-12-31 11:36] LABS: ABG A-A DIFF O2 64.6 mmHg (10-20.0); O2 DEVICE,BLOOD GAS VENTILATOR (ROOM AIR); SITE, BLOOD GAS ARTERIAL LINE; VENT MODE, BG Press. Support Vent. (ROOM AIR)
[2024-12-31 11:37] LABS: PEEP,BG 5 cm H2O; PRESSURE SUPPORT, BG 5 cm H2O; SPONTANEOUS VT, BG 400 ml
[2024-12-31] MEDS: INSULIN LISPRO 100 UNITS/ML SQ PRN (12:22)
[2024-12-31 17:21] LABS: GLUCOMETER DEV NAME(LOC) ICU.S6; GLUCOSE,POINT OF CARE 141 MG/DL (70-110)
[2024-12-31 19:46] LABS: GLUCOMETER DEV NAME(LOC) ICUN.5; GLUCOSE,POINT OF CARE 94 MG/DL (70-110)
[2024-12-31] MEDS ORDERED: SODIUM CHLORIDE 0.9% 500 ML IV ONE (20:16)
[2025-01-01] VITALS (14 sets, daily range): BP systolic 115–151; BP diastolic 45–57; PULSE 59–116; RESP 15–32; TEMP 96.3–98.5; O2SAT 94–100
[2025-01-01 00:25] LABS: GLUCOMETER DEV NAME(LOC) ICU.S6; GLUCOSE,POINT OF CARE 83 MG/DL (70-110)
[2025-01-01 05:52] LABS: BASOPHILS % (AUTO) 0.6 % (0.0-2.0); EOSINOPHILS % (AUTO) 5.2 % (1.0-6.0); HEMATOCRIT 23.9 % (36-46); HEMOGLOBIN 8.1 g/dL (12.0-16.0); LYMPHOCYTES # (AUTO) 1.3 K/uL (1.0-4.8); LYMPHOCYTES % (AUTO) 25.6 % (22.0-44.0); MEAN CORPUSCULAR HEMOGLOBIN 34.1 pg (26.0-34.0); MEAN CORPUSCULAR HGB CONC 33.6 G/dL (31.0-37.0); MEAN CORPUSCULAR VOLUME 101 fL (80-100); MONOCYTES # (AUTO) 0.5 K/uL (0.1-1.0); MONOCYTES % (AUTO) 10.1 % (2.0-9.0); NEUTROPHILS % (AUTO) 58.5 % (40.0-70.0); PLATELET COUNT (AUTO) 177 K/uL (150-450); RED BLOOD CELL COUNT(AUTO) 2.36 MIL/uL (4.00-5.20); RED CELL DISTRIBUTION WIDTH 14.2 % (11.5-14.5); WHITE BLOOD COUNT (AUTO) 5.2 K/uL (4.5-11.0)
[2025-01-01 06:09] LABS: MAGNESIUM 1.9 mg/dL (1.80-2.40); VANCOMYCIN,RANDOM 16.6 mcg/mL (25.0-50.0)
[2025-01-01 06:13] LABS: ALBUMIN 4.2 g/dL (3.4-5.0); BILIRUBIN,TOTAL 2.1 mg/dL (0.1-1.0); CALCIUM, TOTAL 9.4 mg/dL (8.8-10.5); CREATININE 1.95 mg/dL (0.60-1.30); PHOSPHORUS 2.8 mg/dL (2.5-4.9); POTASSIUM 3.1 mmol/L (3.5-5.1); TOTAL PROTEIN, SERUM 7.6 g/dL (6.4-8.2)
[2025-01-01 06:25] LABS: GLUCOMETER DEV NAME(LOC) ICU.S6; GLUCOSE,POINT OF CARE 89 MG/DL (70-110)
[2025-01-01 06:38] LABS: RBC MORPHOLOGY COMMENT ABNORMAL RBC MORPH
[2025-01-01] MEDS: POTASSIUM CHL 10 MEQ/WATER 50 ML IV SCH ×3 (08:31→20:52)
[2025-01-01] MEDS: POTASSIUM CHL 10 MEQ/WATER 50 ML IV ONE (10:38)
[2025-01-01 13:22] LABS: GLUCOMETER DEV NAME(LOC) ICUN.5; GLUCOSE,POINT OF CARE 127 MG/DL (70-110)
[2025-01-01] MEDS ORDERED: SODIUM CHLORIDE 0.9% 500 ML IV ONE (14:07)
[2025-01-01 14:27] LABS: CALCIUM, TOTAL 9.3 mg/dL (8.8-10.5); CREATININE 1.97 mg/dL (0.60-1.30); POTASSIUM 3.2 mmol/L (3.5-5.1)
[2025-01-01 16:14] LABS: ABG BASE EXCESS -0.3 mmol/L (-2.0-3.0); ABG CARBOXYHEMOGLOBIN 0.4 % (0.5-1.5); ABG HCO3 24.1 mmol/L (21.0-28.0); ABG METHEMOGLOBIN 0.3 % (0.0-1.5); ABG OXYGEN CONTENT 11.6 mL/dL (15.0-23.0); ABG OXYGEN SATURATION 97.1 % (94.0-98.0); ABG OXYHEMOGLOBIN 96.4 % (94.0-98.0); ABG PCO2 46 mmHg (32.0-45.0); ABG PH 7.354 (7.350-7.450); ABG TOTAL HEMOGLOBIN 8.4 G/dL (12.0-16.0); PO2, ARTERIAL BG 87.6 mmHg (83.0-108.0); SITE, BLOOD GAS ARTERIAL LINE; SOURCE, BLOOD GAS ARTERIAL; TEMPERATURE, FAHRENHEIT, BG 96.3 FAHREN (96.0-98.6)
[2025-01-01 16:15] LABS: CPAP, BG 5 cm H2O; O2 DEVICE,BLOOD GAS VENTILATOR (ROOM AIR); PRESSURE SUPPORT, BG 8 cm H2O; SPONTANEOUS VT, BG 430 ml; VENT MODE, BG CPAP (ROOM AIR)
[2025-01-01 16:16] LABS: ABG A-A DIFF O2 72.9 mmHg (10-20.0)
[2025-01-01] MEDS: VANCOMYCIN 1.25 GM/WATER(PEG) 250 ML IV ONE (16:21)
[2025-01-01] MEDS: POTASSIUM CHLORIDE 20 MEQ ER TABLET PO ONE (18:08)
[2025-01-02] VITALS (11 sets, daily range): BP systolic 124–155; BP diastolic 43–82; PULSE 93–106; RESP 14–25; TEMP 98.6–100.4; O2SAT 95–100
[2025-01-02 00:16] LABS: GLUCOMETER DEV NAME(LOC) ICUN.5; GLUCOSE,POINT OF CARE 104 MG/DL (70-110)
[2025-01-02 00:56] LABS: GLUCOMETER DEV NAME(LOC) ICU.S6; GLUCOSE,POINT OF CARE 102 MG/DL (70-110)
[2025-01-02 06:30] LABS: BASOPHILS % (AUTO) 0.5 % (0.0-2.0); EOSINOPHILS % (AUTO) 4.4 % (1.0-6.0); LYMPHOCYTES % (AUTO) 16.3 % (22.0-44.0); MEAN CORPUSCULAR HEMOGLOBIN 33.4 pg (26.0-34.0); MEAN CORPUSCULAR HGB CONC 32.1 G/dL (31.0-37.0); MEAN CORPUSCULAR VOLUME 104 fL (80-100); MONOCYTES # (AUTO) 0.6 K/uL (0.1-1.0); MONOCYTES % (AUTO) 10.7 % (2.0-9.0); NEUTROPHILS # (AUTO) 4.1 K/uL (1.8-7.7); NEUTROPHILS % (AUTO) 68.1 % (40.0-70.0); PLATELET COUNT (AUTO) 202 K/uL (150-450); RED BLOOD CELL COUNT(AUTO) 2.41 MIL/uL (4.00-5.20); RED CELL DISTRIBUTION WIDTH 14.6 % (11.5-14.5)
[2025-01-02 06:44] LABS: CREATININE 1.84 mg/dL (0.60-1.30); PHOSPHORUS 3.3 mg/dL (2.5-4.9)
[2025-01-02 06:53] LABS: RBC MORPHOLOGY COMMENT ABNORMAL RBC MORPH
[2025-01-02 07:16] LABS: GLUCOMETER DEV NAME(LOC) ICUN.5; GLUCOSE,POINT OF CARE 124 MG/DL (70-110)
[2025-01-02 07:29] LABS: MAGNESIUM 1.8 mg/dL (1.80-2.40)
[2025-01-02 07:41] LABS: CALCIUM, TOTAL 9.1 mg/dL (8.8-10.5)
[2025-01-02] MEDS: POTASSIUM CHL 10 MEQ/WATER 50 ML IV SCH (11:00)
[2025-01-02 11:41] LABS: GLUCOMETER DEV NAME(LOC) ICU.S6; GLUCOSE,POINT OF CARE 127 MG/DL (70-110)
[2025-01-02] MEDS: POTASSIUM CHLORIDE 20 MEQ ER TABLET PO ONE ×2 (11:41→17:27)
[2025-01-02 20:36] LABS: GLUCOMETER DEV NAME(LOC) ICU.S6; GLUCOSE,POINT OF CARE 123 MG/DL (70-110)
[2025-01-02] MEDS ORDERED: SODIUM CHLORIDE 0.9% 250 ML IV ONE (23:49)
[2025-01-03] VITALS (10 sets, daily range): BP systolic 116–144; BP diastolic 50–89; PULSE 84–100; RESP 19–25; TEMP 97.7–98.6; O2SAT 97–100
[2025-01-03 06:46] LABS: BASOPHILS % (AUTO) 0.6 % (0.0-2.0); EOSINOPHILS % (AUTO) 3.6 % (1.0-6.0); HEMOGLOBIN 8.3 g/dL (12.0-16.0); LYMPHOCYTES # (AUTO) 1.5 K/uL (1.0-4.8); LYMPHOCYTES % (AUTO) 29.4 % (22.0-44.0); MEAN CORPUSCULAR HEMOGLOBIN 34.3 pg (26.0-34.0); MEAN CORPUSCULAR HGB CONC 33.1 G/dL (31.0-37.0); MEAN CORPUSCULAR VOLUME 104 fL (80-100); MONOCYTES # (AUTO) 0.6 K/uL (0.1-1.0); MONOCYTES % (AUTO) 12.8 % (2.0-9.0); NEUTROPHILS # (AUTO) 2.6 K/uL (1.8-7.7); NEUTROPHILS % (AUTO) 53.6 % (40.0-70.0); PLATELET COUNT (AUTO) 252 K/uL (150-450); RED BLOOD CELL COUNT(AUTO) 2.41 MIL/uL (4.00-5.20); RED CELL DISTRIBUTION WIDTH 14.9 % (11.5-14.5); WHITE BLOOD COUNT (AUTO) 4.9 K/uL (4.5-11.0)
[2025-01-03 06:49] LABS: CALCIUM, TOTAL 9.5 mg/dL (8.8-10.5); CREATININE 1.98 mg/dL (0.60-1.30)
[2025-01-03] MEDS: POTASSIUM CHLORIDE 20 MEQ ER TABLET PO ONE ×2 (10:52→16:09)
[2025-01-03] MEDS: MEROPENEM 1 GM in SODIUM CHLORIDE 0.9% 50 ML IV SCH (11:37)
[2025-01-03] MEDS: POTASSIUM CHL 10 MEQ/WATER 50 ML IV SCH (18:20)
[2025-01-03 19:24] LABS: C.DIFF GDH ANTIGEN, Stool Negative (Negative); C.DIFF TOXINS A&B, Stool Negative (Negative)
[2025-01-03 20:21] LABS: GLUCOMETER DEV NAME(LOC) 5N.2C; GLUCOSE,POINT OF CARE 122 MG/DL (70-110)
[2025-01-03] MEDS ORDERED: SODIUM CHLORIDE 0.9% 500 ML IV ONE (22:06)
[2025-01-04] VITALS (8 sets, daily range): BP systolic 122–147; BP diastolic 58–67; PULSE 75–90; RESP 18–21; TEMP 98.1–98.8; O2SAT 98–100
[2025-01-04 07:37] LABS: BASOPHILS % (AUTO) 0.8 % (0.0-2.0); EOSINOPHILS % (AUTO) 5.4 % (1.0-6.0); HEMATOCRIT 26.3 % (36-46); HEMOGLOBIN 8.6 g/dL (12.0-16.0); LYMPHOCYTES # (AUTO) 1.2 K/uL (1.0-4.8); LYMPHOCYTES % (AUTO) 29.6 % (22.0-44.0); MEAN CORPUSCULAR HEMOGLOBIN 34.2 pg (26.0-34.0); MEAN CORPUSCULAR HGB CONC 32.7 G/dL (31.0-37.0); MEAN CORPUSCULAR VOLUME 105 fL (80-100); MONOCYTES # (AUTO) 0.7 K/uL (0.1-1.0); MONOCYTES % (AUTO) 16.4 % (2.0-9.0); NEUTROPHILS % (AUTO) 47.8 % (40.0-70.0); PLATELET COUNT (AUTO) 286 K/uL (150-450); RED BLOOD CELL COUNT(AUTO) 2.51 MIL/uL (4.00-5.20); RED CELL DISTRIBUTION WIDTH 14.4 % (11.5-14.5); WHITE BLOOD COUNT (AUTO) 4.1 K/uL (4.5-11.0)
[2025-01-04] MEDS ORDERED: POTASSIUM CHLORIDE 20 MEQ ER TABLET PO ONE (08:00)
[2025-01-04 08:06] LABS: CALCIUM, TOTAL 9.7 mg/dL (8.8-10.5); CREATININE 1.96 mg/dL (0.60-1.30); POTASSIUM 3.4 mmol/L (3.5-5.1); VANCOMYCIN,RANDOM 19.2 mcg/mL (25.0-50.0)
[2025-01-04] MEDS: POTASSIUM CHLORIDE 20 MEQ ER TABLET PO ONE (09:12)
[2025-01-04] MEDS: VANCOMYCIN 1GM/WATER(PEG/NADA) 200 ML IV ONE (13:34)
[2025-01-04] MEDS: LACTOBACILLUS ACIDOPHILUS/BULGARICUS GRANULES PACKET PO SCH (16:01)
[2025-01-04 20:02] LABS: GLUCOMETER DEV NAME(LOC) 5N.1D; GLUCOSE,POINT OF CARE 127 MG/DL (70-110)
[2025-01-04 20:08] LABS: GLUCOMETER DEV NAME(LOC) 5S.2D; GLUCOSE,POINT OF CARE 115 MG/DL (70-110)
[2025-01-04 20:08] LABS: GLUCOMETER DEV NAME(LOC) 5S.2D; GLUCOSE,POINT OF CARE 102 MG/DL (70-110)
[2025-01-04 20:09] LABS: GLUCOMETER DEV NAME(LOC) 5S.2D; GLUCOSE,POINT OF CARE 110 MG/DL (70-110)
[2025-01-04 20:09] LABS: GLUCOMETER DEV NAME(LOC) 5S.2D; GLUCOSE,POINT OF CARE 88 MG/DL (70-110)
[2025-01-04 20:09] LABS: GLUCOMETER DEV NAME(LOC) 5S.2D; GLUCOSE,POINT OF CARE 98 MG/DL (70-110)
[2025-01-04 20:09] LABS: GLUCOMETER DEV NAME(LOC) 5S.2D; GLUCOSE,POINT OF CARE 110 MG/DL (70-110)
[2025-01-05] VITALS (7 sets, daily range): BP systolic 106–148; BP diastolic 54–89; PULSE 84–92; RESP 16–19; TEMP 97.7–98.9; O2SAT 97–100
[2025-01-05 07:10] LABS: BASOPHILS % (AUTO) 0.7 % (0.0-2.0); EOSINOPHILS % (AUTO) 5.5 % (1.0-6.0); HEMATOCRIT 24.7 % (36-46); LYMPHOCYTES # (AUTO) 1.1 K/uL (1.0-4.8); MEAN CORPUSCULAR HEMOGLOBIN 33.6 pg (26.0-34.0); MEAN CORPUSCULAR HGB CONC 32.4 G/dL (31.0-37.0); MEAN CORPUSCULAR VOLUME 104 fL (80-100); MONOCYTES # (AUTO) 0.6 K/uL (0.1-1.0); MONOCYTES % (AUTO) 14.8 % (2.0-9.0); NEUTROPHILS # (AUTO) 1.9 K/uL (1.8-7.7); PLATELET COUNT (AUTO) 318 K/uL (150-450); RED BLOOD CELL COUNT(AUTO) 2.38 MIL/uL (4.00-5.20); WHITE BLOOD COUNT (AUTO) 3.8 K/uL (4.5-11.0)
[2025-01-05 07:14] LABS: RBC MORPHOLOGY COMMENT ABNORMAL RBC MORPH
[2025-01-05 07:21] LABS: CALCIUM, TOTAL 9.8 mg/dL (8.8-10.5); CREATININE 2.05 mg/dL (0.60-1.30); MAGNESIUM 1.9 mg/dL (1.80-2.40)
[2025-01-05] MEDS: DEXTROSE 5%-WATER 1,000 ML IV ONE (13:37)
[2025-01-05] MEDS: POTASSIUM CHL 10 MEQ/WATER 50 ML IV SCH (13:42)
[2025-01-06] VITALS (9 sets, daily range): BP systolic 124–146; BP diastolic 56–71; PULSE 83–95; RESP 18–21; TEMP 97.9–98.8; O2SAT 95–99
[2025-01-06] MEDS ORDERED: SODIUM CHLORIDE 0.9% 250 ML IV ONE (05:17)
[2025-01-06 07:26] LABS: CALCIUM, TOTAL 9.8 mg/dL (8.8-10.5); CREATININE 2.3 mg/dL (0.60-1.30); POTASSIUM 3.2 mmol/L (3.5-5.1)
[2025-01-06] MEDS: POTASSIUM CHLORIDE 20 MEQ ER TABLET PO ONE (14:34)
[2025-01-06] MEDS: POTASSIUM CHL 20 MEQ/0.45% NS 1,000 ML IV ONE (20:42)
[2025-01-06] MEDS ORDERED: SODIUM CHLORIDE 0.9% 500 ML IV ONE (22:34)
[2025-01-07 01:32] VITALS: PULSE 90; RESP 17; O2SAT 97
[2025-01-07 02:51] LABS: GLUCOMETER DEV NAME(LOC) 5S.2D; GLUCOSE,POINT OF CARE 143 MG/DL (70-110)
[2025-01-07 02:51] LABS: GLUCOMETER DEV NAME(LOC) 5S.2D; GLUCOSE,POINT OF CARE 128 MG/DL (70-110)
[2025-01-07 02:51] LABS: GLUCOMETER DEV NAME(LOC) 5S.2D; GLUCOSE,POINT OF CARE 108 MG/DL (70-110)
[2025-01-07 02:51] LABS: GLUCOMETER DEV NAME(LOC) 5S.2D; GLUCOSE,POINT OF CARE 130 MG/DL (70-110)
[2025-01-07 02:51] LABS: GLUCOMETER DEV NAME(LOC) 5S.2D; GLUCOSE,POINT OF CARE 108 MG/DL (70-110)
[2025-01-07 02:51] LABS: GLUCOMETER DEV NAME(LOC) 5S.2D; GLUCOSE,POINT OF CARE 115 MG/DL (70-110)
[2025-01-07 02:51] LABS: GLUCOMETER DEV NAME(LOC) 5S.2D; GLUCOSE,POINT OF CARE 145 MG/DL (70-110)
[2025-01-07 05:03] VITALS: BP 133/68; PULSE 94; RESP 18; TEMP 98.1; O2SAT 94
[2025-01-07 07:35] LABS: CALCIUM, TOTAL 10.2 mg/dL (8.8-10.5); CREATININE 2.53 mg/dL (0.60-1.30); POTASSIUM 3.6 mmol/L (3.5-5.1); VANCOMYCIN,RANDOM 21.2 mcg/mL (25.0-50.0)
[2025-01-07 07:36] VITALS: BP 146/70; PULSE 95; RESP 18; TEMP 97.9; O2SAT 96
[2025-01-07] MEDS: DEXTROSE 5%-WATER 1,000 ML IV ONE (09:16)
[2025-01-07 12:11] LABS: GLUCOMETER DEV NAME(LOC) 6S.2; GLUCOSE,POINT OF CARE 108 MG/DL (70-110)
[2025-01-07 12:11] LABS: GLUCOMETER DEV NAME(LOC) 6S.2; GLUCOSE,POINT OF CARE 131 MG/DL (70-110)
[2025-01-07 12:11] LABS: GLUCOMETER DEV NAME(LOC) 6S.2; GLUCOSE,POINT OF CARE 111 MG/DL (70-110)
[2025-01-07 12:11] LABS: GLUCOMETER DEV NAME(LOC) 6S.2; GLUCOSE,POINT OF CARE 124 MG/DL (70-110)
[2025-01-07] MEDS: ONDANSETRON HCL 4 MG/2 ML VIAL IVP PRN (14:15)
[2025-01-07 15:45] VITALS: BP 140/60; PULSE 103; RESP 18; TEMP 99.1; O2SAT 91
[2025-01-07 18:31] LABS: GLUCOMETER DEV NAME(LOC) 6S.2; GLUCOSE,POINT OF CARE 133 MG/DL (70-110)
[2025-01-07] MEDS: LevETIRAcetam 500 MG TABLET PO SCH (21:03)
[2025-01-07 21:09] VITALS: BP 123/53; PULSE 92; RESP 18; TEMP 98.8; O2SAT 94
[2025-01-07 22:21] LABS: GLUCOMETER DEV NAME(LOC) 6N.2B; GLUCOSE,POINT OF CARE 123 MG/DL (70-110)
[2025-01-08] VITALS (8 sets, daily range): BP systolic 109–151; BP diastolic 49–90; PULSE 77–85; RESP 14–19; TEMP 97.7–98.2; O2SAT 94–100
[2025-01-08 04:21] LABS: GLUCOMETER DEV NAME(LOC) 6S.1D; GLUCOSE,POINT OF CARE 131 MG/DL (70-110)
[2025-01-08 07:32] LABS: MAGNESIUM 1.9 mg/dL (1.80-2.40)
[2025-01-08 08:35] LABS: CALCIUM, TOTAL 9.8 mg/dL (8.8-10.5); CREATININE 3.26 mg/dL (0.60-1.30); POTASSIUM 3.3 mmol/L (3.5-5.1)
[2025-01-08] MEDS: DEXTROSE 5% IV SCH (10:16)
[2025-01-08] MEDS: SODIUM BICARBONATE IV SCH (10:16)
[2025-01-08] MEDS: POTASSIUM CHLORIDE IV SCH (10:16)
[2025-01-08] MEDS: WATER IV SCH (10:16)
[2025-01-08 11:35] LABS: GLUCOMETER DEV NAME(LOC) 6S.2; GLUCOSE,POINT OF CARE 115 MG/DL (70-110)
[2025-01-08 13:07] LABS: SOURCE, BLOOD GAS ARTERIAL; TEMPERATURE, FAHRENHEIT, BG 98.4 FAHREN (96.0-98.6)
[2025-01-08 13:23] LABS: ABG BASE EXCESS -13.1 mmol/L (-2.0-3.0); ABG CARBOXYHEMOGLOBIN 0.3 % (0.5-1.5); ABG HCO3 14.6 mmol/L (21.0-28.0); ABG METHEMOGLOBIN 0.3 % (0.0-1.5); ABG OXYGEN CONTENT 12.1 mL/dL (15.0-23.0); ABG OXYHEMOGLOBIN 94.4 % (94.0-98.0); ABG PCO2 41 mmHg (32.0-45.0); PO2, ARTERIAL BG 79.8 mmHg (83.0-108.0)
[2025-01-08 13:25] LABS: ABG PH 7.187 (7.350-7.450); ALLEN TEST, BLOOD GAS Positive; SITE, BLOOD GAS RT RADIAL
[2025-01-08 13:26] LABS: ABG A-A DIFF O2 71.9 mmHg (10-20.0); O2 DEVICE,BLOOD GAS CANNULA (ROOM AIR)
[2025-01-08] MEDS: POTASSIUM CHLORIDE 10% 40 MEQ/30 ML LIQUID UDCUP PO ONE (16:50)
[2025-01-08 18:38] LABS: CREATININE,URINE RANDOM 201.1 mg/dL (30.0-125.0)
[2025-01-08 22:21] LABS: GLUCOMETER DEV NAME(LOC) 5S.2D; GLUCOSE,POINT OF CARE 128 MG/DL (70-110)
[2025-01-08 22:21] LABS: GLUCOMETER DEV NAME(LOC) 5S.2D; GLUCOSE,POINT OF CARE 125 MG/DL (70-110)
[2025-01-09] VITALS (9 sets, daily range): BP systolic 137–146; BP diastolic 54–72; PULSE 79–84; RESP 14–20; TEMP 97.5–98.4; O2SAT 97–100
[2025-01-09 07:25] LABS: CALCIUM, TOTAL 9.4 mg/dL (8.8-10.5); CREATININE 3.98 mg/dL (0.60-1.30); POTASSIUM 3.7 mmol/L (3.5-5.1)
[2025-01-09 09:01] LABS: GLUCOMETER DEV NAME(LOC) 5N.1D; GLUCOSE,POINT OF CARE 144 MG/DL (70-110)
[2025-01-09] MEDS: ATORVASTATIN CALCIUM 20 MG TABLET PO SCH (09:08)
[2025-01-09 11:10] LABS: BASOPHILS % (AUTO) 0.3 % (0.0-2.0); EOSINOPHILS % (AUTO) 3.8 % (1.0-6.0); HEMATOCRIT 24.5 % (36-46); LYMPHOCYTES # (AUTO) 1.1 K/uL (1.0-4.8); MEAN CORPUSCULAR HEMOGLOBIN 33.3 pg (26.0-34.0); MEAN CORPUSCULAR HGB CONC 32.6 G/dL (31.0-37.0); MEAN CORPUSCULAR VOLUME 102 fL (80-100); MONOCYTES # (AUTO) 0.7 K/uL (0.1-1.0); MONOCYTES % (AUTO) 13.4 % (2.0-9.0); NEUTROPHILS % (AUTO) 60.5 % (40.0-70.0); PLATELET COUNT (AUTO) 369 K/uL (150-450); RED BLOOD CELL COUNT(AUTO) 2.39 MIL/uL (4.00-5.20); RED CELL DISTRIBUTION WIDTH 15.5 % (11.5-14.5)
[2025-01-09 11:35] LABS: RBC MORPHOLOGY COMMENT ABNORMAL RBC MORPH
[2025-01-09 20:50] LABS: GLUCOMETER DEV NAME(LOC) 5S.2D; GLUCOSE,POINT OF CARE 132 MG/DL (70-110)
[2025-01-09 20:51] LABS: GLUCOMETER DEV NAME(LOC) 5N.1D; GLUCOSE,POINT OF CARE 131 MG/DL (70-110)
[2025-01-09 22:23] LABS: APPEARANCE,URINE TURBID (CLEAR); BILIRUBIN,URINE NEGATIVE (NEGATIVE); COLOR,URINE YELLOW (YELLOW); GLUCOSE, URINE (UA) NEGATIVE (NEGATIVE); KETONES,URINE NEGATIVE (NEGATIVE); LEUKOCYTE ESTERASE ,URINE LARGE (NEGATIVE); NITRATE,URINE NEGATIVE (NEGATIVE); OCCULT BLOOD,URINE LARGE (NEGATIVE); PH,URINE 5.5 (5.0-8.0); PROTEIN,URINE 100-200,SEE CONFIRM mg/dL (NEGATIVE); SPECIFIC GRAVITIY, URINE 1.015 (1.003-1.030)
[2025-01-09 22:38] LABS: BACTERIA,URINE Moderate /HPF (None Seen); SQUAMOUS EPITHELIAL CELL,UR Few /LPF (None Seen); WBC,URINE Full Field /HPF (0-5)
[2025-01-09 22:39] LABS: FINE GRANULAR CASTS,URINE 0-2 /LPF (None Seen); SULFOSALICYLIC ACID,URINE 1+ (Negative)
[2025-01-09 23:19] LABS: C.DIFF GDH ANTIGEN, Stool Negative (Negative); C.DIFF TOXINS A&B, Stool Negative (Negative)
[2025-01-09 23:21] LABS: GLUCOMETER DEV NAME(LOC) 5S.2D; GLUCOSE,POINT OF CARE 128 MG/DL (70-110)
[2025-01-10] VITALS (8 sets, daily range): BP systolic 102–148; BP diastolic 58–83; PULSE 62–107; RESP 15–19; TEMP 97.5–98.4; O2SAT 95–100
[2025-01-10 06:40] LABS: GLUCOMETER DEV NAME(LOC) 5N.1D; GLUCOSE,POINT OF CARE 110 MG/DL (70-110)
[2025-01-10 07:19] LABS: BASOPHILS % (AUTO) 0.2 % (0.0-2.0); EOSINOPHILS % (AUTO) 4.9 % (1.0-6.0); HEMATOCRIT 26.2 % (36-46); HEMOGLOBIN 8.7 g/dL (12.0-16.0); LYMPHOCYTES # (AUTO) 0.9 K/uL (1.0-4.8); LYMPHOCYTES % (AUTO) 20.4 % (22.0-44.0); MEAN CORPUSCULAR HGB CONC 33.2 G/dL (31.0-37.0); MEAN CORPUSCULAR VOLUME 102 fL (80-100); MONOCYTES # (AUTO) 0.6 K/uL (0.1-1.0); MONOCYTES % (AUTO) 12.7 % (2.0-9.0); NEUTROPHILS # (AUTO) 2.7 K/uL (1.8-7.7); NEUTROPHILS % (AUTO) 61.8 % (40.0-70.0); PLATELET COUNT (AUTO) 384 K/uL (150-450); RED BLOOD CELL COUNT(AUTO) 2.56 MIL/uL (4.00-5.20); RED CELL DISTRIBUTION WIDTH 15.7 % (11.5-14.5); WHITE BLOOD COUNT (AUTO) 4.4 K/uL (4.5-11.0)
[2025-01-10 07:35] LABS: CALCIUM, TOTAL 9.5 mg/dL (8.8-10.5); CREATININE 3.79 mg/dL (0.60-1.30); MAGNESIUM 1.8 mg/dL (1.80-2.40); PHOSPHORUS 4.2 mg/dL (2.5-4.9); POTASSIUM 3.6 mmol/L (3.5-5.1)
[2025-01-10 20:40] LABS: GLUCOMETER DEV NAME(LOC) 5N.1D; GLUCOSE,POINT OF CARE 106 MG/DL (70-110)
[2025-01-10 20:41] LABS: GLUCOMETER DEV NAME(LOC) 5N.1D; GLUCOSE,POINT OF CARE 95 MG/DL (70-110)
[2025-01-11] VITALS (8 sets, daily range): BP systolic 109–159; BP diastolic 60–89; PULSE 86–115; RESP 16–22; TEMP 97.5–98.2; O2SAT 95–100
[2025-01-11 06:06] LABS: GLUCOMETER DEV NAME(LOC) 5N.1D; GLUCOSE,POINT OF CARE 111 MG/DL (70-110)
[2025-01-11 06:54] LABS: CALCIUM, TOTAL 9.4 mg/dL (8.8-10.5); CREATININE 3.29 mg/dL (0.60-1.30); POTASSIUM 3.4 mmol/L (3.5-5.1); VANCOMYCIN,RANDOM 13.6 mcg/mL (25.0-50.0)
[2025-01-11 07:11] LABS: GLUCOMETER DEV NAME(LOC) 5S.2D; GLUCOSE,POINT OF CARE 112 MG/DL (70-110)
[2025-01-11] MEDS: POTASSIUM CHLORIDE 20 MEQ ER TABLET PO ONE (11:50)
[2025-01-12 03:39] VITALS: BP 114/94; PULSE 98; RESP 20; TEMP 97.7; O2SAT 97
[2025-01-12 05:55] LABS: GLUCOMETER DEV NAME(LOC) 5S.2D; GLUCOSE,POINT OF CARE 141 MG/DL (70-110)
[2025-01-12 05:55] LABS: GLUCOMETER DEV NAME(LOC) 5S.2D; GLUCOSE,POINT OF CARE 124 MG/DL (70-110)
[2025-01-12 05:56] LABS: GLUCOMETER DEV NAME(LOC) 5S.2D; GLUCOSE,POINT OF CARE 119 MG/DL (70-110)
[2025-01-12 08:53] VITALS: BP 153/67; PULSE 90; RESP 18; TEMP 99.3; O2SAT 97
[2025-01-12 09:15] LABS: GLUCOMETER DEV NAME(LOC) 5N.1D; GLUCOSE,POINT OF CARE 120 MG/DL (70-110)
[2025-01-12 11:36] VITALS: BP 145/62; PULSE 97; RESP 19; TEMP 99.9; O2SAT 98
[2025-01-12 12:00] LABS: GLUCOMETER DEV NAME(LOC) 5N.1D; GLUCOSE,POINT OF CARE 143 MG/DL (70-110)
[2025-01-12 12:10] LABS: ABG BASE EXCESS -7.3 mmol/L (-2.0-3.0); ABG HCO3 18.9 mmol/L (21.0-28.0); ABG METHEMOGLOBIN 0.3 % (0.0-1.5); ABG OXYGEN CONTENT 10.6 mL/dL (15.0-23.0); ABG OXYGEN SATURATION 93.7 % (94.0-98.0); ABG OXYHEMOGLOBIN 92.5 % (94.0-98.0); ABG PCO2 36 mmHg (32.0-45.0); ABG PH 7.331 (7.350-7.450); ABG TOTAL HEMOGLOBIN 8.1 G/dL (12.0-16.0); PO2, ARTERIAL BG 72.1 mmHg (83.0-108.0); SOURCE, BLOOD GAS ARTERIAL
[2025-01-12 12:11] LABS: ABG A-A DIFF O2 84.9 mmHg (10-20.0); ALLEN TEST, BLOOD GAS Positive; O2 DEVICE,BLOOD GAS CANNULA (ROOM AIR); SITE, BLOOD GAS RT RADIAL
[2025-01-12 14:21] LABS: CALCIUM, TOTAL 9.4 mg/dL (8.8-10.5); CREATININE 2.27 mg/dL (0.60-1.30); POTASSIUM 3.5 mmol/L (3.5-5.1)
[2025-01-12 14:24] LABS: MAGNESIUM 1.7 mg/dL (1.80-2.40); PHOSPHORUS 2.7 mg/dL (2.5-4.9)
[2025-01-12 15:21] VITALS: BP 133/70; PULSE 101; RESP 18; TEMP 99.1; O2SAT 98
[2025-01-12 16:40] LABS: CALCIUM, TOTAL 9.4 mg/dL (8.8-10.5); CREATININE 2.28 mg/dL (0.60-1.30); MAGNESIUM 1.5 mg/dL (1.80-2.40); PHOSPHORUS 2.6 mg/dL (2.5-4.9); POTASSIUM 3.4 mmol/L (3.5-5.1)
[2025-01-12] MEDS: MAGNESIUM SULFATE 2 GM/WATER 50 ML IV ONE (17:12)
[2025-01-12] MEDS: POTASSIUM CHLORIDE 10% 40 MEQ/30 ML LIQUID UDCUP PO ONE (17:20)
[2025-01-12] MEDS ORDERED: SODIUM CHLORIDE 0.9% 250 ML IV ONE (17:28)
[2025-01-12 17:51] LABS: GLUCOMETER DEV NAME(LOC) 5N.1D; GLUCOSE,POINT OF CARE 143 MG/DL (70-110)
[2025-01-12 20:04] VITALS: BP 108/96; PULSE 95; RESP 20; TEMP 98.4; O2SAT 97
[2025-01-13] VITALS (10 sets, daily range): BP systolic 145–169; BP diastolic 60–100; PULSE 63–110; RESP 17–32; TEMP 98.6–100.7; O2SAT 94–100
[2025-01-13 01:06] LABS: GLUCOMETER DEV NAME(LOC) 5N.1D; GLUCOSE,POINT OF CARE 122 MG/DL (70-110)
[2025-01-13 03:21] LABS: GLUCOMETER DEV NAME(LOC) 5N.2C; GLUCOSE,POINT OF CARE 136 MG/DL (70-110)
[2025-01-13 03:29] LABS: ABG CARBOXYHEMOGLOBIN 0.2 % (0.5-1.5); ABG HCO3 21.3 mmol/L (21.0-28.0); ABG METHEMOGLOBIN 0.2 % (0.0-1.5); ABG OXYGEN CONTENT 11.1 mL/dL (15.0-23.0); ABG OXYGEN SATURATION 96.6 % (94.0-98.0); ABG OXYHEMOGLOBIN 96.2 % (94.0-98.0); ABG PCO2 41 mmHg (32.0-45.0); ABG TOTAL HEMOGLOBIN 8.1 G/dL (12.0-16.0); PO2, ARTERIAL BG 92.1 mmHg (83.0-108.0); SOURCE, BLOOD GAS ARTERIAL; TEMPERATURE, FAHRENHEIT, BG 98.6 FAHREN (96.0-98.6)
[2025-01-13 03:30] LABS: ALLEN TEST, BLOOD GAS Positive; O2 DEVICE,BLOOD GAS BIPAP (ROOM AIR); SITE, BLOOD GAS LFT RADIAL
[2025-01-13 03:46] LABS: BASOPHILS % (AUTO) 0.3 % (0.0-2.0); EOSINOPHILS % (AUTO) 4.2 % (1.0-6.0); HEMATOCRIT 22.5 % (36-46); HEMOGLOBIN 7.6 g/dL (12.0-16.0); LYMPHOCYTES # (AUTO) 1.2 K/uL (1.0-4.8); LYMPHOCYTES % (AUTO) 18.1 % (22.0-44.0); MEAN CORPUSCULAR HEMOGLOBIN 33.8 pg (26.0-34.0); MEAN CORPUSCULAR HGB CONC 33.7 G/dL (31.0-37.0); MEAN CORPUSCULAR VOLUME 101 fL (80-100); MONOCYTES # (AUTO) 0.9 K/uL (0.1-1.0); MONOCYTES % (AUTO) 13.8 % (2.0-9.0); NEUTROPHILS # (AUTO) 4.1 K/uL (1.8-7.7); NEUTROPHILS % (AUTO) 63.6 % (40.0-70.0); PLATELET COUNT (AUTO) 425 K/uL (150-450); RED BLOOD CELL COUNT(AUTO) 2.24 MIL/uL (4.00-5.20); RED CELL DISTRIBUTION WIDTH 16.2 % (11.5-14.5); WHITE BLOOD COUNT (AUTO) 6.5 K/uL (4.5-11.0)
[2025-01-13 03:47] LABS: ANION GAP 14 mmol/L (8-16); CALCIUM, TOTAL 9.4 mg/dL (8.8-10.5); CARBON DIOXIDE 27 mmol/L (22-29); CHLORIDE 111 mmol/L (98-107); CREATININE 1.99 mg/dL (0.60-1.30); GLOMERULAR FILTR. RATE CALC 26 mL/min (>60); GLUCOSE,RANDOM 138 mg/dL (70-110); POTASSIUM 3.9 mmol/L (3.5-5.1); SODIUM SERUM 151 mmol/L (136-145); UREA NITROGEN, BLOOD 49 mg/dL (7-18)
[2025-01-13 03:56] LABS: CREATINE KINASE, TOTAL ONLY 22 U/L (26-192)
[2025-01-13 03:59] LABS: TROPONIN I-HIGH SENSITIVITY 85 ng/L (<51)
[2025-01-13 04:14] LABS: ALBUMIN 3.5 g/dL (3.4-5.0); BILIRUBIN,DIRECT 1.7 mg/dL (0.00-0.20); BILIRUBIN,TOTAL 2.2 mg/dL (0.1-1.0); TOTAL PROTEIN, SERUM 7.5 g/dL (6.4-8.2)
[2025-01-13 04:18] LABS: B-TYPE NATRIURETIC PEPTIDE 1060 pg/mL (0-100)
[2025-01-13] MEDS: POTASSIUM CHL 10 MEQ/WATER 50 ML IV ONE (04:48)
[2025-01-13 05:14] LABS: PHOSPHORUS 2.5 mg/dL (2.5-4.9)
[2025-01-13] MEDS ORDERED: AMIODARONE HCL 50 MG/ML 3 ML VIAL IVP ONE (06:30)
[2025-01-13] MEDS ORDERED: AMIODARONE HCL 50 MG/ML 3 ML VIAL IV ONE (06:45)
[2025-01-13 06:46] LABS: TROPONIN I-HIGH SENSITIVITY 99 ng/L (<51)
[2025-01-13 06:52] LABS: BASOPHILS % (AUTO) 0.4 % (0.0-2.0); EOSINOPHILS % (AUTO) 4.4 % (1.0-6.0); HEMATOCRIT 22.4 % (36-46); HEMOGLOBIN 7.6 g/dL (12.0-16.0); LYMPHOCYTES # (AUTO) 1.1 K/uL (1.0-4.8); LYMPHOCYTES % (AUTO) 17.7 % (22.0-44.0); MEAN CORPUSCULAR HEMOGLOBIN 34.1 pg (26.0-34.0); MEAN CORPUSCULAR VOLUME 100 fL (80-100); MONOCYTES # (AUTO) 0.8 K/uL (0.1-1.0); MONOCYTES % (AUTO) 13.1 % (2.0-9.0); NEUTROPHILS # (AUTO) 3.9 K/uL (1.8-7.7); NEUTROPHILS % (AUTO) 64.4 % (40.0-70.0); PLATELET COUNT (AUTO) 397 K/uL (150-450); RED BLOOD CELL COUNT(AUTO) 2.23 MIL/uL (4.00-5.20)
[2025-01-13 06:55] LABS: CALCIUM, TOTAL 9.4 mg/dL (8.8-10.5); CREATININE 1.88 mg/dL (0.60-1.30); POTASSIUM 4.1 mmol/L (3.5-5.1)
[2025-01-13 06:58] LABS: MAGNESIUM 2.1 mg/dL (1.80-2.40); PHOSPHORUS 2.4 mg/dL (2.5-4.9)
[2025-01-13 07:16] LABS: RBC MORPHOLOGY COMMENT ABNORMAL RBC MORPH
[2025-01-13] MEDS: AMIODARONE HCL 150 MG in DEXTROSE 5%-WATER 97 ML IV ONE (07:29)
[2025-01-13 07:55] LABS: GLUCOMETER DEV NAME(LOC) ICUN.5; GLUCOSE,POINT OF CARE 142 MG/DL (70-110)
[2025-01-13] MEDS: ASPIRIN 325 MG TABLET PO ONE (08:32)
[2025-01-13] MEDS: ASPIRIN 81 MG DR TABLET PO SCH (09:02)
[2025-01-13] MEDS: METOPROLOL TARTRATE 25 MG TABLET PO SCH (09:02)
[2025-01-13] MEDS: HydrALAZINE HCL 20 MG/ML VIAL IVP PRN (10:49)
[2025-01-13] MEDS: CIPROFLOXACIN 400 MG/D5% WATER 200 ML IV SCH (11:24)
[2025-01-13] MEDS: DEXTROSE 5%-WATER 1,000 ML IV SCH (11:37)
[2025-01-13] MEDS ORDERED: EPINEPHrine 1:10,000 [1 MG/10 ML] SYRINGE ONE (12:00)
[2025-01-13 13:01] LABS: GLUCOMETER DEV NAME(LOC) 5N.2C; GLUCOSE,POINT OF CARE 139 MG/DL (70-110)
[2025-01-13 21:46] LABS: GLUCOMETER DEV NAME(LOC) 5N.2C; GLUCOSE,POINT OF CARE 189 MG/DL (70-110)
[2025-01-14] VITALS (9 sets, daily range): BP systolic 114–158; BP diastolic 51–78; PULSE 84–93; RESP 17–25; TEMP 98.2–100.2; O2SAT 94–98
[2025-01-14 06:31] LABS: GLUCOMETER DEV NAME(LOC) 5S.2D; GLUCOSE,POINT OF CARE 140 MG/DL (70-110)
[2025-01-14 07:52] LABS: BASOPHILS % (AUTO) 0.4 % (0.0-2.0); EOSINOPHILS % (AUTO) 3.9 % (1.0-6.0); HEMATOCRIT 22.3 % (36-46); HEMOGLOBIN 7.5 g/dL (12.0-16.0); LYMPHOCYTES # (AUTO) 1.2 K/uL (1.0-4.8); LYMPHOCYTES % (AUTO) 15.4 % (22.0-44.0); MEAN CORPUSCULAR HGB CONC 33.7 G/dL (31.0-37.0); MEAN CORPUSCULAR VOLUME 101 fL (80-100); MONOCYTES # (AUTO) 0.9 K/uL (0.1-1.0); MONOCYTES % (AUTO) 11.5 % (2.0-9.0); NEUTROPHILS # (AUTO) 5.3 K/uL (1.8-7.7); NEUTROPHILS % (AUTO) 68.8 % (40.0-70.0); PLATELET COUNT (AUTO) 386 K/uL (150-450); RED BLOOD CELL COUNT(AUTO) 2.21 MIL/uL (4.00-5.20); RED CELL DISTRIBUTION WIDTH 16.4 % (11.5-14.5); WHITE BLOOD COUNT (AUTO) 7.7 K/uL (4.5-11.0)
[2025-01-14 08:09] LABS: ANION GAP 12 mmol/L (8-16); CALCIUM, TOTAL 9.4 mg/dL (8.8-10.5); CARBON DIOXIDE 25 mmol/L (22-29); CHLORIDE 111 mmol/L (98-107); GLOMERULAR FILTR. RATE CALC 31 mL/min (>60); GLUCOSE,RANDOM 138 mg/dL (70-110); POTASSIUM 3.9 mmol/L (3.5-5.1); SODIUM SERUM 148 mmol/L (136-145); UREA NITROGEN, BLOOD 43 mg/dL (7-18)
[2025-01-14 08:16] LABS: TROPONIN I-HIGH SENSITIVITY 93 ng/L (<51)
[2025-01-14 08:58] LABS: RBC MORPHOLOGY COMMENT ABNORMAL RBC MORPH
[2025-01-14 21:21] LABS: GLUCOMETER DEV NAME(LOC) 5N.1D; GLUCOSE,POINT OF CARE 141 MG/DL (70-110)
[2025-01-15] VITALS (7 sets, daily range): BP systolic 146–164; BP diastolic 70–94; PULSE 73–96; RESP 18–23; TEMP 98.2–99.1; O2SAT 95–100
[2025-01-15 06:26] LABS: GLUCOMETER DEV NAME(LOC) 5S.2D; GLUCOSE,POINT OF CARE 146 MG/DL (70-110)
[2025-01-15 07:10] LABS: BASOPHILS % (AUTO) 0.7 % (0.0-2.0); EOSINOPHILS % (AUTO) 5.6 % (1.0-6.0); HEMATOCRIT 22.3 % (36-46); HEMOGLOBIN 7.4 g/dL (12.0-16.0); LYMPHOCYTES # (AUTO) 1.6 K/uL (1.0-4.8); MEAN CORPUSCULAR HEMOGLOBIN 33.8 pg (26.0-34.0); MEAN CORPUSCULAR HGB CONC 33.1 G/dL (31.0-37.0); MEAN CORPUSCULAR VOLUME 102 fL (80-100); MONOCYTES # (AUTO) 0.9 K/uL (0.1-1.0); NEUTROPHILS # (AUTO) 5.2 K/uL (1.8-7.7); NEUTROPHILS % (AUTO) 62.7 % (40.0-70.0); PLATELET COUNT (AUTO) 362 K/uL (150-450); RED BLOOD CELL COUNT(AUTO) 2.18 MIL/uL (4.00-5.20); WHITE BLOOD COUNT (AUTO) 8.2 K/uL (4.5-11.0)
[2025-01-15 07:50] LABS: CALCIUM, TOTAL 9.1 mg/dL (8.8-10.5); CREATININE 1.71 mg/dL (0.60-1.30)
[2025-01-15 19:05] LABS: GLUCOMETER DEV NAME(LOC) 5N.1D; GLUCOSE,POINT OF CARE 155 MG/DL (70-110)
[2025-01-15 19:05] LABS: GLUCOMETER DEV NAME(LOC) 5S.2D; GLUCOSE,POINT OF CARE 152 MG/DL (70-110)
[2025-01-15 20:25] LABS: GLUCOMETER DEV NAME(LOC) 5S.2D; GLUCOSE,POINT OF CARE 183 MG/DL (70-110)
[2025-01-16] VITALS (8 sets, daily range): BP systolic 137–151; BP diastolic 62–84; PULSE 69–88; RESP 16–20; TEMP 97.5–98.7; O2SAT 96–100
[2025-01-16 07:06] LABS: GLUCOMETER DEV NAME(LOC) 5S.2D; GLUCOSE,POINT OF CARE 155 MG/DL (70-110)
[2025-01-16 07:20] LABS: MAGNESIUM 1.7 mg/dL (1.80-2.40); PHOSPHORUS 3.5 mg/dL (2.5-4.9)
[2025-01-16 07:29] LABS: % IRON SATURATION 37.8 % (22-44)
[2025-01-16] MEDS: AmLODIPine BESYLATE 5 MG TABLET PO SCH (09:24)
[2025-01-16 17:01] LABS: GLUCOMETER DEV NAME(LOC) 5N.2C; GLUCOSE,POINT OF CARE 186 MG/DL (70-110)
[2025-01-16 20:16] LABS: GLUCOMETER DEV NAME(LOC) 5N.1D; GLUCOSE,POINT OF CARE 162 MG/DL (70-110)
[2025-01-17] VITALS (9 sets, daily range): BP systolic 116–142; BP diastolic 50–72; PULSE 57–76; RESP 16–18; TEMP 97.6–98; O2SAT 95–100
[2025-01-17 06:15] LABS: GLUCOMETER DEV NAME(LOC) 5N.2C; GLUCOSE,POINT OF CARE 137 MG/DL (70-110)
[2025-01-17 06:21] LABS: GLUCOMETER DEV NAME(LOC) 5S.2D; GLUCOSE,POINT OF CARE 152 MG/DL (70-110)
[2025-01-17 06:40] LABS: CREATININE 1.53 mg/dL (0.60-1.30); POTASSIUM 4.1 mmol/L (3.5-5.1)
[2025-01-17 07:19] LABS: MAGNESIUM 1.7 mg/dL (1.80-2.40); PHOSPHORUS 3.8 mg/dL (2.5-4.9)
[2025-01-17 16:13] LABS: BASOPHILS % (AUTO) 0.9 % (0.0-2.0); EOSINOPHILS % (AUTO) 8.1 % (1.0-6.0); HEMATOCRIT 25.4 % (36-46); HEMOGLOBIN 7.7 g/dL (12.0-16.0); LYMPHOCYTES # (AUTO) 1.3 K/uL (1.0-4.8); LYMPHOCYTES % (AUTO) 16.1 % (22.0-44.0); MEAN CORPUSCULAR HEMOGLOBIN 32.7 pg (26.0-34.0); MEAN CORPUSCULAR HGB CONC 30.2 G/dL (31.0-37.0); MEAN CORPUSCULAR VOLUME 108 fL (80-100); MONOCYTES # (AUTO) 0.7 K/uL (0.1-1.0); MONOCYTES % (AUTO) 8.5 % (2.0-9.0); NEUTROPHILS # (AUTO) 5.2 K/uL (1.8-7.7); NEUTROPHILS % (AUTO) 66.4 % (40.0-70.0); PLATELET COUNT (AUTO) 359 K/uL (150-450); RED BLOOD CELL COUNT(AUTO) 2.35 MIL/uL (4.00-5.20); WHITE BLOOD COUNT (AUTO) 7.9 K/uL (4.5-11.0)
[2025-01-17 16:30] LABS: RBC MORPHOLOGY COMMENT ABNORMAL RBC MORPH
[2025-01-17 17:36] LABS: GLUCOMETER DEV NAME(LOC) 5S.2D; GLUCOSE,POINT OF CARE 162 MG/DL (70-110)
[2025-01-17 18:06] LABS: GLUCOMETER DEV NAME(LOC) 5S.2D; GLUCOSE,POINT OF CARE 141 MG/DL (70-110)
[2025-01-17 22:31] LABS: GLUCOMETER DEV NAME(LOC) 5S.2D; GLUCOSE,POINT OF CARE 131 MG/DL (70-110)
[2025-01-18] VITALS (8 sets, daily range): BP systolic 128–147; BP diastolic 52–66; PULSE 63–88; RESP 16–24; TEMP 97.7–98.9; O2SAT 96–100
[2025-01-18 05:51] LABS: GLUCOMETER DEV NAME(LOC) 5N.2C; GLUCOSE,POINT OF CARE 139 MG/DL (70-110)
[2025-01-18 06:58] LABS: CREATININE 1.38 mg/dL (0.60-1.30); POTASSIUM 4.4 mmol/L (3.5-5.1)
[2025-01-18 07:05] LABS: MAGNESIUM 1.7 mg/dL (1.80-2.40); PHOSPHORUS 4.2 mg/dL (2.5-4.9)
[2025-01-18] MEDS: EPOETIN ALFA 10,000 UNITS/ML VIAL SQ SCH (08:42)
[2025-01-18] MEDS: MAGNESIUM SULFATE 2 GM/WATER 50 ML IV ONE (14:55)
[2025-01-18 18:11] LABS: GLUCOMETER DEV NAME(LOC) 5N.2C; GLUCOSE,POINT OF CARE 154 MG/DL (70-110)
[2025-01-18 18:50] LABS: GLUCOMETER DEV NAME(LOC) 5N.2C; GLUCOSE,POINT OF CARE 165 MG/DL (70-110)
[2025-01-18 21:41] LABS: GLUCOMETER DEV NAME(LOC) 5S.2D; GLUCOSE,POINT OF CARE 157 MG/DL (70-110)
[2025-01-18] MEDS ORDERED: SODIUM CHLORIDE 0.9% 500 ML IV ONE (22:34)
[2025-01-19] VITALS (7 sets, daily range): BP systolic 136–158; BP diastolic 55–70; PULSE 71–88; RESP 17–22; TEMP 98.2–99; O2SAT 94–99
[2025-01-19 06:51] LABS: GLUCOMETER DEV NAME(LOC) 5S.2D; GLUCOSE,POINT OF CARE 144 MG/DL (70-110)
[2025-01-19 20:10] LABS: GLUCOMETER DEV NAME(LOC) 5N.1D; GLUCOSE,POINT OF CARE 143 MG/DL (70-110)
[2025-01-19 23:00] LABS: GLUCOMETER DEV NAME(LOC) 5S.2D; GLUCOSE,POINT OF CARE 187 MG/DL (70-110)
[2025-01-20] VITALS (7 sets, daily range): BP systolic 136–146; BP diastolic 63–69; PULSE 67–85; RESP 16–19; TEMP 98.1–98.6; O2SAT 93–97
[2025-01-20 00:55] LABS: GLUCOMETER DEV NAME(LOC) 5N.2C; GLUCOSE,POINT OF CARE 147 MG/DL (70-110)
[2025-01-20 05:45] LABS: GLUCOMETER DEV NAME(LOC) 5N.2C; GLUCOSE,POINT OF CARE 147 MG/DL (70-110)
[2025-01-20 07:52] LABS: CALCIUM, TOTAL 9.7 mg/dL (8.8-10.5); CREATININE 1.36 mg/dL (0.60-1.30); POTASSIUM 4.1 mmol/L (3.5-5.1)
[2025-01-20 08:08] LABS: PHOSPHORUS 2.2 mg/dL (2.5-4.9)
[2025-01-20 12:50] LABS: GLUCOMETER DEV NAME(LOC) 5N.2C; GLUCOSE,POINT OF CARE 149 MG/DL (70-110)
[2025-01-20 18:51] LABS: GLUCOMETER DEV NAME(LOC) 5N.2C; GLUCOSE,POINT OF CARE 165 MG/DL (70-110)
[2025-01-20 21:05] LABS: GLUCOMETER DEV NAME(LOC) 5N.2C; GLUCOSE,POINT OF CARE 162 MG/DL (70-110)
[2025-01-21 00:40] VITALS: BP 138/52; PULSE 71; RESP 18; TEMP 98.8; O2SAT 98
[2025-01-21 01:00] VITALS: PULSE 74; RESP 21; O2SAT 96
[2025-01-21 04:05] VITALS: BP 129/82; PULSE 94; RESP 18; TEMP 98.2; O2SAT 98
[2025-01-21 07:32] VITALS: BP 140/59; PULSE 72; RESP 18; TEMP 98.4; O2SAT 95
[2025-01-21 08:22] LABS: BASOPHILS % (AUTO) 0.2 % (0.0-2.0); EOSINOPHILS % (AUTO) 11.3 % (1.0-6.0); HEMOGLOBIN 8.5 g/dL (12.0-16.0); LYMPHOCYTES # (AUTO) 1.5 K/uL (1.0-4.8); LYMPHOCYTES % (AUTO) 12.4 % (22.0-44.0); MEAN CORPUSCULAR HEMOGLOBIN 33.4 pg (26.0-34.0); MEAN CORPUSCULAR HGB CONC 31.5 G/dL (31.0-37.0); MEAN CORPUSCULAR VOLUME 106 fL (80-100); MONOCYTES # (AUTO) 0.8 K/uL (0.1-1.0); NEUTROPHILS # (AUTO) 8.1 K/uL (1.8-7.7); NEUTROPHILS % (AUTO) 69.1 % (40.0-70.0); PLATELET COUNT (AUTO) 272 K/uL (150-450); RED BLOOD CELL COUNT(AUTO) 2.55 MIL/uL (4.00-5.20); RED CELL DISTRIBUTION WIDTH 17.7 % (11.5-14.5); WHITE BLOOD COUNT (AUTO) 11.8 K/uL (4.5-11.0)
[2025-01-21 08:34] LABS: CALCIUM, TOTAL 9.8 mg/dL (8.8-10.5); CREATININE 1.18 mg/dL (0.60-1.30); POTASSIUM 4.3 mmol/L (3.5-5.1)
[2025-01-21 09:48] LABS: RBC MORPHOLOGY COMMENT ABNORMAL RBC MORPH
[2025-01-21 09:50] LABS: GLUCOMETER DEV NAME(LOC) 5S.2D; GLUCOSE,POINT OF CARE 159 MG/DL (70-110)
[2025-01-21 11:18] VITALS: BP 147/63; PULSE 67; RESP 18; TEMP 97.5; O2SAT 96
[2025-01-21 13:21] LABS: GLUCOMETER DEV NAME(LOC) 5N.2C; GLUCOSE,POINT OF CARE 158 MG/DL (70-110)
[2025-01-21] MEDS: LOSARTAN POTASSIUM 25 MG TABLET PO SCH (13:33)
[2025-01-21 16:01] VITALS: BP 139/66; PULSE 70; RESP 18; TEMP 97.6; O2SAT 95
[2025-01-21 20:51] LABS: GLUCOMETER DEV NAME(LOC) 5S.2D; GLUCOSE,POINT OF CARE 148 MG/DL (70-110)
[2025-01-21 20:51] LABS: GLUCOMETER DEV NAME(LOC) 5N.2C; GLUCOSE,POINT OF CARE 147 MG/DL (70-110)
[2025-01-22] VITALS: BP 126/85; PULSE 75; RESP 16; TEMP 98.6; O2SAT 98
[2025-01-22 04:00] VITALS: BP 141/61; PULSE 71; RESP 20; TEMP 98.6; O2SAT 97
[2025-01-22 08:26] VITALS: BP 139/58; PULSE 72; RESP 18; TEMP 97.8; O2SAT 97
[2025-01-22 09:57] LABS: CALCIUM, TOTAL 9.5 mg/dL (8.8-10.5); CREATININE 1.13 mg/dL (0.60-1.30); POTASSIUM 4.2 mmol/L (3.5-5.1)
[2025-01-22] MEDS ORDERED: SODIUM CHLORIDE 0.9% 500 ML IV ONE (11:36)
[2025-01-22 20:24] VITALS: BP 133/65; PULSE 71; RESP 18; TEMP 98; O2SAT 97
[2025-01-22 21:35] LABS: GLUCOMETER DEV NAME(LOC) 5S.1D; GLUCOSE,POINT OF CARE 155 MG/DL (70-110)
[2025-01-22 22:41] VITALS: PULSE 65; RESP 20; O2SAT 97
[2025-01-23 01:45] VITALS: PULSE 72; RESP 15; O2SAT 96
[2025-01-23 04:04] VITALS: PULSE 78; RESP 18; O2SAT 96
[2025-01-23 05:49] VITALS: BP 129/59; PULSE 69; RESP 17; TEMP 97.8; O2SAT 95
[2025-01-23 08:02] VITALS: BP 145/60; PULSE 72; RESP 18; TEMP 98.5; O2SAT 96
[2025-01-23] MEDS: PANTOPRAZOLE SODIUM 40 MG DR TABLET PO SCH (08:38)
[2025-01-23] MEDS: MULTIVITAMINS WITH MINERALS, THERAPEUTIC TABLET PO SCH (08:39)
[2025-01-23 11:18] LABS: BASOPHILS % (AUTO) 0.5 % (0.0-2.0); HEMATOCRIT 26.5 % (36-46); HEMOGLOBIN 8.6 g/dL (12.0-16.0); LYMPHOCYTES # (AUTO) 1.2 K/uL (1.0-4.8); LYMPHOCYTES % (AUTO) 12.1 % (22.0-44.0); MEAN CORPUSCULAR HEMOGLOBIN 34.5 pg (26.0-34.0); MEAN CORPUSCULAR HGB CONC 32.6 G/dL (31.0-37.0); MEAN CORPUSCULAR VOLUME 106 fL (80-100); MONOCYTES # (AUTO) 0.7 K/uL (0.1-1.0); NEUTROPHILS # (AUTO) 6.5 K/uL (1.8-7.7); NEUTROPHILS % (AUTO) 62.5 % (40.0-70.0); PLATELET COUNT (AUTO) 235 K/uL (150-450); RED CELL DISTRIBUTION WIDTH 17.4 % (11.5-14.5); WHITE BLOOD COUNT (AUTO) 10.4 K/uL (4.5-11.0)
[2025-01-23 11:20] LABS: EOSINOPHILS % (AUTO) 17.9 % (1.0-6.0); RBC MORPHOLOGY COMMENT ABNORMAL RBC MORPH
[2025-01-23 11:30] LABS: CALCIUM, TOTAL 9.8 mg/dL (8.8-10.5); CREATININE 1.12 mg/dL (0.60-1.30); POTASSIUM 4.4 mmol/L (3.5-5.1)
[2025-01-23 11:35] LABS: ALBUMIN 3.3 g/dL (3.4-5.0); BILIRUBIN,TOTAL 1.5 mg/dL (0.1-1.0); TOTAL PROTEIN, SERUM 7.3 g/dL (6.4-8.2)
[2025-01-23] MEDS: DiphenhydrAMINE/ZINC ACET 30 GM CREAM TP PRN (17:34)
[2025-01-23 19:41] LABS: GLUCOMETER DEV NAME(LOC) 6N.1B; GLUCOSE,POINT OF CARE 162 MG/DL (70-110)
[2025-01-23 19:41] LABS: GLUCOMETER DEV NAME(LOC) 6N.1B; GLUCOSE,POINT OF CARE 169 MG/DL (70-110)
[2025-01-23 19:55] VITALS: BP 141/60; PULSE 77; RESP 18; TEMP 98.1; O2SAT 95
[2025-01-23 21:45] VITALS: PULSE 77; RESP 21; O2SAT 97
[2025-01-24 04:15] VITALS: BP 134/52; PULSE 69; RESP 18; TEMP 97.9; O2SAT 96
[2025-01-24 08:10] VITALS: PULSE 68; RESP 22; O2SAT 97
[2025-01-24 08:20] VITALS: BP 138/64; PULSE 78; RESP 18; TEMP 98; O2SAT 98
[2025-01-24] MEDS: DOCUSATE SODIUM 100 MG CAPSULE PO PRN (09:55)
[2025-01-24 16:59] VITALS: BP 142/68; PULSE 72; RESP 18; TEMP 97.9; O2SAT 98
[2025-01-24 17:31] LABS: GLUCOMETER DEV NAME(LOC) 4E.2; GLUCOSE,POINT OF CARE 168 MG/DL (70-110)
[2025-01-24 17:31] LABS: GLUCOMETER DEV NAME(LOC) 4E.2; GLUCOSE,POINT OF CARE 139 MG/DL (70-110)
[2025-01-24 17:31] LABS: GLUCOMETER DEV NAME(LOC) 4E.2; GLUCOSE,POINT OF CARE 182 MG/DL (70-110)
[2025-01-24 17:31] LABS: GLUCOMETER DEV NAME(LOC) 4E.2; GLUCOSE,POINT OF CARE 137 MG/DL (70-110)
[2025-01-24 17:31] LABS: GLUCOMETER DEV NAME(LOC) 4E.2; GLUCOSE,POINT OF CARE 134 MG/DL (70-110)
[2025-01-24 22:00] VITALS: BP 129/67; PULSE 75; RESP 18; TEMP 98.4; O2SAT 96
[2025-01-24 22:21] LABS: GLUCOMETER DEV NAME(LOC) 6N.1B; GLUCOSE,POINT OF CARE 128 MG/DL (70-110)
[2025-01-24 23:10] VITALS: PULSE 73; RESP 20; O2SAT 96
[2025-01-25] VITALS (9 sets, daily range): BP systolic 132–137; BP diastolic 52–80; PULSE 66–72; RESP 16–24; TEMP 98.1–98.6; O2SAT 94–100
[2025-01-25 06:06] LABS: GLUCOMETER DEV NAME(LOC) 6N.1B; GLUCOSE,POINT OF CARE 147 MG/DL (70-110)
[2025-01-25 07:46] LABS: GLUCOMETER DEV NAME(LOC) 5S.1D; GLUCOSE,POINT OF CARE 121 MG/DL (70-110)
[2025-01-25 07:46] LABS: GLUCOMETER DEV NAME(LOC) 5S.1D; GLUCOSE,POINT OF CARE 151 MG/DL (70-110)
[2025-01-25] MEDS: EPOETIN ALFA 10,000 UNITS/ML VIAL SQ SCH (08:09)
[2025-01-25 16:47] LABS: SOURCE, BLOOD GAS ARTERIAL; TEMPERATURE, FAHRENHEIT, BG 98.1 FAHREN (96.0-98.6)
[2025-01-25 17:03] LABS: ABG A-A DIFF O2 158.4 mmHg (10-20.0); ABG CARBOXYHEMOGLOBIN 0.9 % (0.5-1.5); ABG METHEMOGLOBIN 0.2 % (0.0-1.5); ABG OXYGEN CONTENT 11.6 mL/dL (15.0-23.0); ABG OXYGEN SATURATION 93.2 % (94.0-98.0); ABG OXYHEMOGLOBIN 92.2 % (94.0-98.0); ABG PCO2 53 mmHg (32.0-45.0); ABG PH 7.385 (7.350-7.450); ABG TOTAL HEMOGLOBIN 8.9 G/dL (12.0-16.0); ALLEN TEST, BLOOD GAS Positive; O2 DEVICE,BLOOD GAS CANNULA (ROOM AIR); PO2, ARTERIAL BG 66.2 mmHg (83.0-108.0); SITE, BLOOD GAS LFT RADIAL
[2025-01-25 19:21] LABS: GLUCOMETER DEV NAME(LOC) 5S.1D; GLUCOSE,POINT OF CARE 162 MG/DL (70-110)
[2025-01-25 23:56] LABS: GLUCOMETER DEV NAME(LOC) 5N.1D; GLUCOSE,POINT OF CARE 126 MG/DL (70-110)
[2025-01-26] VITALS (10 sets, daily range): BP systolic 131–147; BP diastolic 51–85; PULSE 62–75; RESP 15–25; TEMP 98.2–99.1; O2SAT 96–100
[2025-01-26 01:16] LABS: GLUCOMETER DEV NAME(LOC) 5S.2D; GLUCOSE,POINT OF CARE 123 MG/DL (70-110)
[2025-01-26 08:41] LABS: GLUCOMETER DEV NAME(LOC) 5N.2C; GLUCOSE,POINT OF CARE 110 MG/DL (70-110)
[2025-01-26 11:33] LABS: HEMATOCRIT 25.6 % (36-46); HEMOGLOBIN 8.2 g/dL (12.0-16.0); MEAN CORPUSCULAR HEMOGLOBIN 33.7 pg (26.0-34.0); MEAN CORPUSCULAR VOLUME 106 fL (80-100); PLATELET COUNT (AUTO) 223 K/uL (150-450); RED BLOOD CELL COUNT(AUTO) 2.43 MIL/uL (4.00-5.20); RED CELL DISTRIBUTION WIDTH 18.5 % (11.5-14.5); WHITE BLOOD COUNT (AUTO) 10.2 K/uL (4.5-11.0)
[2025-01-26 12:02] LABS: CALCIUM, TOTAL 9.6 mg/dL (8.8-10.5); CREATININE 0.97 mg/dL (0.60-1.30); POTASSIUM 4.4 mmol/L (3.5-5.1)
[2025-01-26 13:07] LABS: BAND NEUTROPHILS % (MANUAL) 0 % (0-5)
[2025-01-26 13:08] LABS: EOSINOPHILS % (MANUAL) 15 % (1-6); LYMPHOCYTES % (MANUAL) 15 % (22-44); MONOCYTES % (MANUAL) 7 % (2-9); SEGMENTED NEUTROPHILS % 63 % (40-70); TOTAL CELLS COUNTED 100
[2025-01-26 13:10] LABS: RBC MORPHOLOGY COMMENT ABNORMAL RBC MORPH
[2025-01-26 16:40] LABS: GLUCOMETER DEV NAME(LOC) 5S.2D; GLUCOSE,POINT OF CARE 115 MG/DL (70-110)
[2025-01-26 18:55] LABS: GLUCOMETER DEV NAME(LOC) 5N.2C; GLUCOSE,POINT OF CARE 148 MG/DL (70-110)
[2025-01-26 22:00] LABS: GLUCOMETER DEV NAME(LOC) 5N.2C; GLUCOSE,POINT OF CARE 132 MG/DL (70-110)
[2025-01-27] VITALS (10 sets, daily range): BP systolic 123–142; BP diastolic 50–67; PULSE 67–86; RESP 18–22; TEMP 98.7–99.3; O2SAT 95–100
[2025-01-27 06:41] LABS: GLUCOMETER DEV NAME(LOC) 5N.2C; GLUCOSE,POINT OF CARE 125 MG/DL (70-110)
[2025-01-27 08:06] LABS: CALCIUM, TOTAL 9.9 mg/dL (8.8-10.5); CREATININE 1.02 mg/dL (0.60-1.30); POTASSIUM 4.6 mmol/L (3.5-5.1)
[2025-01-27 09:36] LABS: HEMOGLOBIN 8.6 g/dL (12.0-16.0); MEAN CORPUSCULAR VOLUME 106 fL (80-100); PLATELET COUNT (AUTO) 240 K/uL (150-450); RED BLOOD CELL COUNT(AUTO) 2.54 MIL/uL (4.00-5.20); RED CELL DISTRIBUTION WIDTH 19.5 % (11.5-14.5); WHITE BLOOD COUNT (AUTO) 9.8 K/uL (4.5-11.0)
[2025-01-27 10:52] LABS: BAND NEUTROPHILS % (MANUAL) 1 % (0-5); EOSINOPHILS % (MANUAL) 3 % (1-6); LYMPHOCYTES % (MANUAL) 21 % (22-44); MONOCYTES % (MANUAL) 2 % (2-9); RBC MORPHOLOGY COMMENT ABNORMAL RBC MORPH; SEGMENTED NEUTROPHILS % 73 % (40-70); TOTAL CELLS COUNTED 100
[2025-01-27 17:16] LABS: GLUCOMETER DEV NAME(LOC) 5S.2D; GLUCOSE,POINT OF CARE 117 MG/DL (70-110)
[2025-01-27 19:55] LABS: GLUCOMETER DEV NAME(LOC) 5S.2D; GLUCOSE,POINT OF CARE 146 MG/DL (70-110)
[2025-01-27 22:46] LABS: GLUCOMETER DEV NAME(LOC) 5S.2D; GLUCOSE,POINT OF CARE 109 MG/DL (70-110)
[2025-01-28] VITALS (8 sets, daily range): BP systolic 123–147; BP diastolic 56–68; PULSE 68–78; RESP 18–23; TEMP 98–98.9; O2SAT 97–100
[2025-01-28 07:20] LABS: HEMATOCRIT 27.1 % (36-46); HEMOGLOBIN 8.6 g/dL (12.0-16.0); MEAN CORPUSCULAR HGB CONC 31.9 G/dL (31.0-37.0); MEAN CORPUSCULAR VOLUME 107 fL (80-100); PLATELET COUNT (AUTO) 240 K/uL (150-450); RED BLOOD CELL COUNT(AUTO) 2.54 MIL/uL (4.00-5.20); RED CELL DISTRIBUTION WIDTH 20.1 % (11.5-14.5); WHITE BLOOD COUNT (AUTO) 8.5 K/uL (4.5-11.0)
[2025-01-28 07:35] LABS: CREATININE 1.03 mg/dL (0.60-1.30); POTASSIUM 3.9 mmol/L (3.5-5.1)
[2025-01-28 08:01] LABS: GLUCOMETER DEV NAME(LOC) 5N.2C; GLUCOSE,POINT OF CARE 109 MG/DL (70-110)
[2025-01-28 08:20] LABS: BAND NEUTROPHILS % (MANUAL) 4 % (0-5); EOSINOPHILS % (MANUAL) 3 % (1-6); LYMPHOCYTES % (MANUAL) 21 % (22-44); MONOCYTES % (MANUAL) 3 % (2-9); RBC MORPHOLOGY COMMENT ABNORMAL RBC MORPH; SEGMENTED NEUTROPHILS % 69 % (40-70); TOTAL CELLS COUNTED 100
[2025-01-28] MEDS: DEXTROSE 5%-WATER 1,000 ML IV ONE (12:41)
[2025-01-28 15:21] LABS: GLUCOMETER DEV NAME(LOC) 5S.2D; GLUCOSE,POINT OF CARE 132 MG/DL (70-110)
[2025-01-28 17:21] LABS: GLUCOMETER DEV NAME(LOC) 5S.2D; GLUCOSE,POINT OF CARE 139 MG/DL (70-110)
[2025-01-28 21:25] LABS: GLUCOMETER DEV NAME(LOC) 5N.2C; GLUCOSE,POINT OF CARE 138 MG/DL (70-110)
[2025-01-29] VITALS (10 sets, daily range): BP systolic 127–140; BP diastolic 55–66; PULSE 65–88; RESP 18–24; TEMP 97.5–98.8; O2SAT 69–99
[2025-01-29 06:36] LABS: BASOPHILS % (AUTO) 0.7 % (0.0-2.0); HEMATOCRIT 27.4 % (36-46); HEMOGLOBIN 8.7 g/dL (12.0-16.0); LYMPHOCYTES # (AUTO) 1.1 K/uL (1.0-4.8); LYMPHOCYTES % (AUTO) 15.4 % (22.0-44.0); MEAN CORPUSCULAR HEMOGLOBIN 34.2 pg (26.0-34.0); MEAN CORPUSCULAR HGB CONC 31.8 G/dL (31.0-37.0); MEAN CORPUSCULAR VOLUME 107 fL (80-100); MONOCYTES # (AUTO) 0.7 K/uL (0.1-1.0); MONOCYTES % (AUTO) 8.9 % (2.0-9.0); NEUTROPHILS # (AUTO) 3.5 K/uL (1.8-7.7); NEUTROPHILS % (AUTO) 47.8 % (40.0-70.0); PLATELET COUNT (AUTO) 240 K/uL (150-450); RED BLOOD CELL COUNT(AUTO) 2.56 MIL/uL (4.00-5.20); RED CELL DISTRIBUTION WIDTH 20.2 % (11.5-14.5); WHITE BLOOD COUNT (AUTO) 7.4 K/uL (4.5-11.0)
[2025-01-29 06:43] LABS: EOSINOPHILS % (AUTO) 27.2 % (1.0-6.0)
[2025-01-29 06:50] LABS: CALCIUM, TOTAL 9.7 mg/dL (8.8-10.5); POTASSIUM 3.6 mmol/L (3.5-5.1)
[2025-01-29 07:13] LABS: RBC MORPHOLOGY COMMENT ABNORMAL RBC MORPH
[2025-01-29 11:41] LABS: GLUCOMETER DEV NAME(LOC) 5N.1D; GLUCOSE,POINT OF CARE 183 MG/DL (70-110)
[2025-01-29 17:30] LABS: GLUCOMETER DEV NAME(LOC) 5N.1D; GLUCOSE,POINT OF CARE 136 MG/DL (70-110)
[2025-01-29 17:51] LABS: GLUCOMETER DEV NAME(LOC) 5N.2C; GLUCOSE,POINT OF CARE 124 MG/DL (70-110)
[2025-01-29 23:16] LABS: GLUCOMETER DEV NAME(LOC) 5N.2C; GLUCOSE,POINT OF CARE 141 MG/DL (70-110)
[2025-01-30] VITALS (9 sets, daily range): BP systolic 119–139; BP diastolic 59–65; PULSE 64–76; RESP 18–24; TEMP 98.1–99; O2SAT 94–99
[2025-01-30 06:35] LABS: GLUCOMETER DEV NAME(LOC) 5S.2D; GLUCOSE,POINT OF CARE 122 MG/DL (70-110)
[2025-01-30 11:50] LABS: GLUCOMETER DEV NAME(LOC) 5N.2C; GLUCOSE,POINT OF CARE 159 MG/DL (70-110)
[2025-01-30 16:45] LABS: GLUCOMETER DEV NAME(LOC) 5S.2D; GLUCOSE,POINT OF CARE 170 MG/DL (70-110)
[2025-01-31] VITALS (11 sets, daily range): BP systolic 123–146; BP diastolic 50–66; PULSE 62–79; RESP 14–21; TEMP 98–99.7; O2SAT 95–99
[2025-01-31 06:36] LABS: GLUCOMETER DEV NAME(LOC) 5S.2D; GLUCOSE,POINT OF CARE 141 MG/DL (70-110)
[2025-01-31 07:14] LABS: CALCIUM, TOTAL 9.7 mg/dL (8.8-10.5); CREATININE 0.98 mg/dL (0.60-1.30); POTASSIUM 3.7 mmol/L (3.5-5.1)
[2025-01-31 07:51] LABS: GLUCOMETER DEV NAME(LOC) 5N.1D; GLUCOSE,POINT OF CARE 129 MG/DL (70-110)
[2025-01-31 12:05] LABS: GLUCOMETER DEV NAME(LOC) 5S.2D; GLUCOSE,POINT OF CARE 191 MG/DL (70-110)
[2025-01-31 16:51] LABS: GLUCOMETER DEV NAME(LOC) 5N.1D; GLUCOSE,POINT OF CARE 135 MG/DL (70-110)
[2025-02-01] VITALS (8 sets, daily range): BP systolic 115–138; BP diastolic 57–70; PULSE 59–99; RESP 18; TEMP 97.7–98.8; O2SAT 95–99
[2025-02-01 06:51] LABS: CALCIUM, TOTAL 9.8 mg/dL (8.8-10.5); CREATININE 1.03 mg/dL (0.60-1.30); POTASSIUM 3.9 mmol/L (3.5-5.1)
[2025-02-01 07:55] LABS: GLUCOMETER DEV NAME(LOC) 5S.2D; GLUCOSE,POINT OF CARE 131 MG/DL (70-110)
[2025-02-01 08:46] LABS: GLUCOMETER DEV NAME(LOC) 5N.1D; GLUCOSE,POINT OF CARE 123 MG/DL (70-110)
[2025-02-01 11:45] LABS: GLUCOMETER DEV NAME(LOC) 5N.1D; GLUCOSE,POINT OF CARE 165 MG/DL (70-110)
[2025-02-01 18:06] LABS: GLUCOMETER DEV NAME(LOC) 5N.1D; GLUCOSE,POINT OF CARE 127 MG/DL (70-110)
[2025-02-01 23:26] LABS: GLUCOMETER DEV NAME(LOC) 5S.2D; GLUCOSE,POINT OF CARE 140 MG/DL (70-110)
[2025-02-02] VITALS (7 sets, daily range): BP systolic 130–136; BP diastolic 56–67; PULSE 61–79; RESP 18–26; TEMP 97.7–98.6; O2SAT 96–100
[2025-02-02 07:50] LABS: CALCIUM, TOTAL 9.6 mg/dL (8.8-10.5); CREATININE 0.98 mg/dL (0.60-1.30); POTASSIUM 3.9 mmol/L (3.5-5.1)
[2025-02-02 08:56] LABS: GLUCOMETER DEV NAME(LOC) 5N.1D; GLUCOSE,POINT OF CARE 114 MG/DL (70-110)
[2025-02-02 09:03] LABS: HEMATOCRIT 29.4 % (36-46); HEMOGLOBIN 9.4 g/dL (12.0-16.0); MEAN CORPUSCULAR VOLUME 109 fL (80-100); PLATELET COUNT (AUTO) 262 K/uL (150-450); RED BLOOD CELL COUNT(AUTO) 2.69 MIL/uL (4.00-5.20)
[2025-02-02 09:39] LABS: BAND NEUTROPHILS % (MANUAL) 1 % (0-5); LYMPHOCYTES % (MANUAL) 23 % (22-44); MONOCYTES % (MANUAL) 7 % (2-9); RBC MORPHOLOGY COMMENT ABNORMAL R; SEGMENTED NEUTROPHILS % 69 % (40-70); TOTAL CELLS COUNTED 100
[2025-02-02 12:21] LABS: GLUCOMETER DEV NAME(LOC) 5N.1D; GLUCOSE,POINT OF CARE 190 MG/DL (70-110)
[2025-02-02 17:10] LABS: GLUCOMETER DEV NAME(LOC) 5S.2D; GLUCOSE,POINT OF CARE 155 MG/DL (70-110)
[2025-02-02 21:55] LABS: GLUCOMETER DEV NAME(LOC) 5S.2D; GLUCOSE,POINT OF CARE 207 MG/DL (70-110)
[2025-02-03] VITALS (8 sets, daily range): BP systolic 110–128; BP diastolic 51–78; PULSE 60–86; RESP 18–22; TEMP 98–98.7; O2SAT 95–98
[2025-02-03 11:46] LABS: GLUCOMETER DEV NAME(LOC) 5S.2D; GLUCOSE,POINT OF CARE 115 MG/DL (70-110)
[2025-02-03 16:41] LABS: GLUCOMETER DEV NAME(LOC) 5S.2D; GLUCOSE,POINT OF CARE 123 MG/DL (70-110)
[2025-02-03 18:10] LABS: GLUCOMETER DEV NAME(LOC) 5S.2D; GLUCOSE,POINT OF CARE 162 MG/DL (70-110)
[2025-02-03 23:36] LABS: GLUCOMETER DEV NAME(LOC) 5S.2D; GLUCOSE,POINT OF CARE 150 MG/DL (70-110)
[2025-02-04] VITALS (9 sets, daily range): BP systolic 104–143; BP diastolic 50–63; PULSE 57–79; RESP 16–22; TEMP 98–99.1; O2SAT 95–98
[2025-02-04 11:15] LABS: GLUCOMETER DEV NAME(LOC) 5S.2D; GLUCOSE,POINT OF CARE 123 MG/DL (70-110)
[2025-02-04 22:01] LABS: GLUCOMETER DEV NAME(LOC) 5N.1D; GLUCOSE,POINT OF CARE 178 MG/DL (70-110)
[2025-02-04 22:11] LABS: GLUCOMETER DEV NAME(LOC) 5N.2C; GLUCOSE,POINT OF CARE 150 MG/DL (70-110)
[2025-02-05 04:00] VITALS: BP 118/54; PULSE 66; RESP 18; TEMP 97.9; O2SAT 97
[2025-02-05 05:40] LABS: GLUCOMETER DEV NAME(LOC) 5N.1D; GLUCOSE,POINT OF CARE 133 MG/DL (70-110)
[2025-02-05 08:00] VITALS: BP 121/51; PULSE 71; RESP 18; TEMP 98.1; O2SAT 97
[2025-02-05 12:00] VITALS: BP 123/43; PULSE 59; RESP 18; TEMP 98.6; O2SAT 96
[2025-02-05 12:00] LABS: GLUCOMETER DEV NAME(LOC) 5N.2C; GLUCOSE,POINT OF CARE 137 MG/DL (70-110)
[2025-02-05 16:14] VITALS: BP 135/52; PULSE 77; RESP 17; TEMP 98.4; O2SAT 99
[2025-02-05 20:33] VITALS: BP 137/56; PULSE 71; RESP 18; TEMP 98.2; O2SAT 98
[2025-02-05 23:36] LABS: GLUCOMETER DEV NAME(LOC) 5N.2C; GLUCOSE,POINT OF CARE 158 MG/DL (70-110)
[2025-02-06] VITALS (8 sets, daily range): BP systolic 112–145; BP diastolic 54–60; PULSE 62–78; RESP 17–18; TEMP 97.7–99; O2SAT 95–98
[2025-02-06 07:00] LABS: MAGNESIUM 2.1 mg/dL (1.80-2.40); PHOSPHORUS 3.5 mg/dL (2.5-4.9)
[2025-02-06 07:16] LABS: CALCIUM, TOTAL 9.3 mg/dL (8.8-10.5); CREATININE 0.98 mg/dL (0.60-1.30); POTASSIUM 3.5 mmol/L (3.5-5.1)
[2025-02-06 08:11] LABS: GLUCOMETER DEV NAME(LOC) 5N.2C; GLUCOSE,POINT OF CARE 120 MG/DL (70-110)
[2025-02-06 10:59] LABS: EOSINOPHILS % (AUTO) 14.8 % (1.0-6.0); HEMATOCRIT 30.8 % (36-46); HEMOGLOBIN 9.7 g/dL (12.0-16.0); LYMPHOCYTES # (AUTO) 1.2 K/uL (1.0-4.8); LYMPHOCYTES % (AUTO) 26.1 % (22.0-44.0); MEAN CORPUSCULAR HEMOGLOBIN 34.6 pg (26.0-34.0); MEAN CORPUSCULAR HGB CONC 31.5 G/dL (31.0-37.0); MEAN CORPUSCULAR VOLUME 110 fL (80-100); MONOCYTES # (AUTO) 0.6 K/uL (0.1-1.0); MONOCYTES % (AUTO) 12.8 % (2.0-9.0); NEUTROPHILS % (AUTO) 44.3 % (40.0-70.0); PLATELET COUNT (AUTO) 301 K/uL (150-450); RED CELL DISTRIBUTION WIDTH 20.1 % (11.5-14.5); WHITE BLOOD COUNT (AUTO) 4.6 K/uL (4.5-11.0)
[2025-02-06 11:14] LABS: RBC MORPHOLOGY COMMENT ABNORMAL RBC MORPH
[2025-02-06 12:26] LABS: GLUCOMETER DEV NAME(LOC) 5N.1D; GLUCOSE,POINT OF CARE 189 MG/DL (70-110)
[2025-02-06] MEDS: PHENYLEPHRINE/SHK LV/MIN OIL/PET 57 GM OINTMENT TP PRN (15:00)
[2025-02-06 18:16] LABS: GLUCOMETER DEV NAME(LOC) 5N.2C; GLUCOSE,POINT OF CARE 173 MG/DL (70-110)
[2025-02-07 00:30] VITALS: BP 136/63; PULSE 71; RESP 18; TEMP 98.8; O2SAT 96
[2025-02-07 05:46] LABS: GLUCOMETER DEV NAME(LOC) 5N.2C; GLUCOSE,POINT OF CARE 211 MG/DL (70-110)
[2025-02-07 06:05] VITALS: BP 135/63; PULSE 66; RESP 18; TEMP 98.6; O2SAT 98
[2025-02-07 09:36] LABS: GLUCOMETER DEV NAME(LOC) 5S.2D; GLUCOSE,POINT OF CARE 121 MG/DL (70-110)
[2025-02-07 12:00] LABS: GLUCOMETER DEV NAME(LOC) 5N.2C; GLUCOSE,POINT OF CARE 180 MG/DL (70-110)
[2025-02-07 12:49] VITALS: BP 137/52; PULSE 75; RESP 19; TEMP 97.9; O2SAT 97
[2025-02-07 16:50] VITALS: BP 135/59; PULSE 73; RESP 16; TEMP 98.6; O2SAT 93
[2025-02-07 18:36] LABS: GLUCOMETER DEV NAME(LOC) 5S.2D; GLUCOSE,POINT OF CARE 145 MG/DL (70-110)
[2025-02-07 20:00] VITALS: BP 131/54; PULSE 73; RESP 20; TEMP 98.2; O2SAT 96
[2025-02-07 22:21] VITALS: PULSE 73; RESP 25; O2SAT 96
[2025-02-07 22:51] LABS: GLUCOMETER DEV NAME(LOC) 5N.2C; GLUCOSE,POINT OF CARE 142 MG/DL (70-110)
[2025-02-08] VITALS (8 sets, daily range): BP systolic 122–140; BP diastolic 52–60; PULSE 60–76; RESP 17–24; TEMP 97.9–99.1; O2SAT 75–98
[2025-02-08 12:01] LABS: GLUCOMETER DEV NAME(LOC) 5S.2D; GLUCOSE,POINT OF CARE 128 MG/DL (70-110)
[2025-02-08 22:00] LABS: GLUCOMETER DEV NAME(LOC) 5N.2C; GLUCOSE,POINT OF CARE 159 MG/DL (70-110)
[2025-02-08 22:16] LABS: GLUCOMETER DEV NAME(LOC) 5S.2D; GLUCOSE,POINT OF CARE 145 MG/DL (70-110)
[2025-02-09] VITALS (9 sets, daily range): BP systolic 117–139; BP diastolic 52–76; PULSE 56–73; RESP 16–23; TEMP 97.6–98.8; O2SAT 95–99
[2025-02-09 06:21] LABS: GLUCOMETER DEV NAME(LOC) 5N.2C; GLUCOSE,POINT OF CARE 110 MG/DL (70-110)
[2025-02-09 06:59] LABS: CALCIUM, TOTAL 9.2 mg/dL (8.8-10.5); CREATININE 1.06 mg/dL (0.60-1.30); POTASSIUM 3.9 mmol/L (3.5-5.1)
[2025-02-09 17:45] LABS: GLUCOMETER DEV NAME(LOC) 5S.2D; GLUCOSE,POINT OF CARE 196 MG/DL (70-110)
[2025-02-10 04:15] VITALS: BP 121/60; PULSE 61; RESP 18; TEMP 97.9; O2SAT 96
[2025-02-10 08:32] VITALS: BP 122/55; PULSE 68; RESP 18; TEMP 97.9; O2SAT 95
[2025-02-10 15:11] LABS: GLUCOMETER DEV NAME(LOC) 6N.1B; GLUCOSE,POINT OF CARE 204 MG/DL (70-110)
[2025-02-10] MEDS ORDERED: ASPI-1450 PO (15:28)
[2025-02-10] MEDS ORDERED: ATOR20TA PO (15:29)
[2025-02-10] MEDS ORDERED: LEVE-71 PO (15:29)
[2025-02-10] MEDS ORDERED: METO25 PO (15:30)
[2025-02-10 16:04] VITALS: BP 130/54; PULSE 62; RESP 18; TEMP 98.4; O2SAT 95
[2025-02-10 17:21] LABS: GLUCOMETER DEV NAME(LOC) 4E.2; GLUCOSE,POINT OF CARE 176 MG/DL (70-110)
[2025-02-10 17:21] LABS: GLUCOMETER DEV NAME(LOC) 4E.2; GLUCOSE,POINT OF CARE 124 MG/DL (70-110)
[2025-02-10 17:21] LABS: GLUCOMETER DEV NAME(LOC) 4E.2; GLUCOSE,POINT OF CARE 173 MG/DL (70-110)
[2025-02-10 17:30] LABS: GLUCOMETER DEV NAME(LOC) 5S.1D; GLUCOSE,POINT OF CARE 137 MG/DL (70-110)
== END 2025-02-10 18:10 | disposition home health service (06) | DRG 720 ==
LOC: EMS 08:34 → EDH 11:25 → ICU 12-22 22:30 → 5S 01-02 21:16 → 6S 01-06 13:17 → 5S 01-08 15:35 → ICU 01-13 04:30 → 5S 01-13 11:50 → 4E 01-22 00:08 → 5S 01-25 13:20 → 4E 02-09 14:25
PROVIDERS: ADMIT Internal Medicine; ATTEND Internal Medicine
PROC: 0BH17EZ Insertion of Endotracheal Airway into Trachea, Via Natural or Artificial Opening (ICD-10-PCS; principal; 2024-12-21)
PROC: 5A1955Z Respiratory Ventilation, Greater than 96 Consecutive Hours (ICD-10-PCS; 2024-12-21)
PROC: 02H633Z Insertion of Infusion Device into Right Atrium, Percutaneous Approach (ICD-10-PCS; 2024-12-21)
PROC: 05HB33Z Insertion of Infusion Device into Right Basilic Vein, Percutaneous Approach (ICD-10-PCS; 2024-12-21)
PROC: B54MZZA Ultrasonography of Right Upper Extremity Veins, Guidance (ICD-10-PCS; 2024-12-21)
PROC: 5A1D70Z Performance of Urinary Filtration, Intermittent, Less than 6 Hours Per Day (ICD-10-PCS; 2024-12-26)
PROC: 5A1D70Z Performance of Urinary Filtration, Intermittent, Less than 6 Hours Per Day (ICD-10-PCS; 2024-12-27)
PROC: 5A1D70Z Performance of Urinary Filtration, Intermittent, Less than 6 Hours Per Day (ICD-10-PCS; 2024-12-29)
PROC: 5A1D70Z Performance of Urinary Filtration, Intermittent, Less than 6 Hours Per Day (ICD-10-PCS; 2024-12-30)
PROC: 5A09357 Assistance with Respiratory Ventilation, Less than 24 Consecutive Hours, Continuous Positive Airway Pressure (ICD-10-PCS; 2025-01-02)
PROC: 5A09357 Assistance with Respiratory Ventilation, Less than 24 Consecutive Hours, Continuous Positive Airway Pressure (ICD-10-PCS; 2025-01-03)
PROC: 5A09357 Assistance with Respiratory Ventilation, Less than 24 Consecutive Hours, Continuous Positive Airway Pressure (ICD-10-PCS; 2025-01-04)
PROC: 5A09357 Assistance with Respiratory Ventilation, Less than 24 Consecutive Hours, Continuous Positive Airway Pressure (ICD-10-PCS; 2025-01-05)
PROC: 5A09357 Assistance with Respiratory Ventilation, Less than 24 Consecutive Hours, Continuous Positive Airway Pressure (ICD-10-PCS; 2025-01-08)
PROC: 5A09357 Assistance with Respiratory Ventilation, Less than 24 Consecutive Hours, Continuous Positive Airway Pressure (ICD-10-PCS; 2025-01-09)
PROC: 5A09357 Assistance with Respiratory Ventilation, Less than 24 Consecutive Hours, Continuous Positive Airway Pressure (ICD-10-PCS; 2025-01-10)
PROC: 05HD33Z Insertion of Infusion Device into Right Cephalic Vein, Percutaneous Approach (ICD-10-PCS; 2025-01-10)
PROC: 5A09357 Assistance with Respiratory Ventilation, Less than 24 Consecutive Hours, Continuous Positive Airway Pressure (ICD-10-PCS; 2025-01-11)
PROC: 5A09357 Assistance with Respiratory Ventilation, Less than 24 Consecutive Hours, Continuous Positive Airway Pressure (ICD-10-PCS; 2025-01-13)
PROC: 5A09357 Assistance with Respiratory Ventilation, Less than 24 Consecutive Hours, Continuous Positive Airway Pressure (ICD-10-PCS; 2025-01-14)
PROC: 5A09357 Assistance with Respiratory Ventilation, Less than 24 Consecutive Hours, Continuous Positive Airway Pressure (ICD-10-PCS; 2025-01-15)
PROC: 5A09357 Assistance with Respiratory Ventilation, Less than 24 Consecutive Hours, Continuous Positive Airway Pressure (ICD-10-PCS; 2025-01-16)
PROC: 5A09357 Assistance with Respiratory Ventilation, Less than 24 Consecutive Hours, Continuous Positive Airway Pressure (ICD-10-PCS; 2025-01-17)
PROC: 5A09357 Assistance with Respiratory Ventilation, Less than 24 Consecutive Hours, Continuous Positive Airway Pressure (ICD-10-PCS; 2025-01-18)
PROC: 5A09357 Assistance with Respiratory Ventilation, Less than 24 Consecutive Hours, Continuous Positive Airway Pressure (ICD-10-PCS; 2025-01-19)
PROC: 5A09357 Assistance with Respiratory Ventilation, Less than 24 Consecutive Hours, Continuous Positive Airway Pressure (ICD-10-PCS; 2025-01-22)
PROC: 5A09357 Assistance with Respiratory Ventilation, Less than 24 Consecutive Hours, Continuous Positive Airway Pressure (ICD-10-PCS; 2025-01-23)
PROC: 5A09357 Assistance with Respiratory Ventilation, Less than 24 Consecutive Hours, Continuous Positive Airway Pressure (ICD-10-PCS; 2025-01-24)
PROC: 5A09357 Assistance with Respiratory Ventilation, Less than 24 Consecutive Hours, Continuous Positive Airway Pressure (ICD-10-PCS; 2025-01-25)
PROC: 5A09357 Assistance with Respiratory Ventilation, Less than 24 Consecutive Hours, Continuous Positive Airway Pressure (ICD-10-PCS; 2025-01-26)
PROC: 5A09357 Assistance with Respiratory Ventilation, Less than 24 Consecutive Hours, Continuous Positive Airway Pressure (ICD-10-PCS; 2025-01-27)
PROC: 5A09357 Assistance with Respiratory Ventilation, Less than 24 Consecutive Hours, Continuous Positive Airway Pressure (ICD-10-PCS; 2025-01-28)
PROC: 5A09357 Assistance with Respiratory Ventilation, Less than 24 Consecutive Hours, Continuous Positive Airway Pressure (ICD-10-PCS; 2025-01-29)
PROC: 5A09357 Assistance with Respiratory Ventilation, Less than 24 Consecutive Hours, Continuous Positive Airway Pressure (ICD-10-PCS; 2025-01-30)
PROC: 5A09357 Assistance with Respiratory Ventilation, Less than 24 Consecutive Hours, Continuous Positive Airway Pressure (ICD-10-PCS; 2025-01-31)
PROC: 5A09357 Assistance with Respiratory Ventilation, Less than 24 Consecutive Hours, Continuous Positive Airway Pressure (ICD-10-PCS; 2025-02-01)
PROC: 5A09357 Assistance with Respiratory Ventilation, Less than 24 Consecutive Hours, Continuous Positive Airway Pressure (ICD-10-PCS; 2025-02-02)
PROC: 5A09357 Assistance with Respiratory Ventilation, Less than 24 Consecutive Hours, Continuous Positive Airway Pressure (ICD-10-PCS; 2025-02-03)
PROC: 5A09357 Assistance with Respiratory Ventilation, Less than 24 Consecutive Hours, Continuous Positive Airway Pressure (ICD-10-PCS; 2025-02-04)
PROC: 5A09357 Assistance with Respiratory Ventilation, Less than 24 Consecutive Hours, Continuous Positive Airway Pressure (ICD-10-PCS; 2025-02-06)
PROC: 5A09357 Assistance with Respiratory Ventilation, Less than 24 Consecutive Hours, Continuous Positive Airway Pressure (ICD-10-PCS; 2025-02-07)
PROC: 5A09357 Assistance with Respiratory Ventilation, Less than 24 Consecutive Hours, Continuous Positive Airway Pressure (ICD-10-PCS; 2025-02-08)
PROC: 5A09357 Assistance with Respiratory Ventilation, Less than 24 Consecutive Hours, Continuous Positive Airway Pressure (ICD-10-PCS; 2025-02-09)
DX: A41.1 Sepsis due to other specified staphylococcus (principal); J96.00 Acute respiratory failure, unspecified whether with hypoxia or hypercapnia; J69.0 Pneumonitis due to inhalation of food and vomit; R65.21 Severe sepsis with septic shock; G92.8 Other toxic encephalopathy; E44.0 Moderate protein-calorie malnutrition; N17.9 Acute kidney failure, unspecified; E87.20 Acidosis, unspecified; N39.0 Urinary tract infection, site not specified; E11.22 Type 2 diabetes mellitus with diabetic chronic kidney disease; B96.20 Unspecified Escherichia coli [E. coli] as the cause of diseases classified elsewhere; Z68.43 Body mass index [BMI] 50.0-59.9, adult; I07.1 Rheumatic tricuspid insufficiency; D64.9 Anemia, unspecified; I13.0 Hypertensive heart and chronic kidney disease with heart failure and stage 1 through stage 4 chronic kidney disease, or unspecified chronic kidney disease; N18.9 Chronic kidney disease, unspecified; I50.9 Heart failure, unspecified; R53.2 Functional quadriplegia; E66.2 Morbid (severe) obesity with alveolar hypoventilation; E83.39 Other disorders of phosphorus metabolism; E87.1 Hypo-osmolality and hyponatremia; E87.5 Hyperkalemia; R68.0 Hypothermia, not associated with low environmental temperature; E83.42 Hypomagnesemia; E87.6 Hypokalemia; E87.0 Hyperosmolality and hypernatremia; R53.81 Other malaise; I48.0 Paroxysmal atrial fibrillation; I48.92 Unspecified atrial flutter; B96.89 Other specified bacterial agents as the cause of diseases classified elsewhere; Z16.12 Extended spectrum beta lactamase (ESBL) resistance; R80.9 Proteinuria, unspecified; Z99.11 Dependence on respirator [ventilator] status; Z99.81 Dependence on supplemental oxygen; Z90.12 Acquired absence of left breast and nipple; Z79.4 Long term (current) use of insulin; Z85.3 Personal history of malignant neoplasm of breast
CPT/HCPCS: 31500; 36245; 36556; 36569; 36600; 71045; 71250; 74018; 74176; 76770; 76937; 80048; 80053; 80076; 80202; 81001; 81002; 82040; 82550; 82570; 82805; 82962; 83036; 83540; 83550; 83735; 83880; 83935; 84100; 84132; 84156; 84300; 84443; 84484; 84540; 85025; 85610; 85730; 87040; 87070; 87077; 87081; 87086; 87186; 87205; 87324; 87340; 87449; 87804; 90935; 90947; 92526; 92610; 93005; 93306; 94002; 94003; 94660; 97110; 97112; 97140; 97163; 97167; 97168; 97530; 97535; 99285; 99291; G0238; G0378; J0171; J0282; J0360; J0610; J0696; J0712; J0744; J0885; J1265; J1644; J1815; J1940; J2185; J2370; J2405; J2470; J2543; J2704; J3010; J3475; J3480; J3490; J7030; J7040; J7050; J7060; P9046; 36415-L1; 36415-TC; 82803-TC; X7700